=== PATIENT | male | born 1940 | race Caucasian/White ===

== ENCOUNTER 2016-09-14 13:55 | Outpatient (CLI) | payer MEDICARE, OTHER ==
[2016-09-14 14:42] LABS: CALCIUM 9.4 mg/dL (8.5-10.3); CREATININE 1.4 mg/dL (0.6-1.2); POTASSIUM 3.6 mmol/L (3.5-5.0); URIC ACID 7.8 mg/dL (2.6-7.2)
[2016-09-14 14:51] LABS: FERRITIN 195.3 ng/mL (23.9-336.2)
== END 2016-09-14 13:56 | disposition home or self-care (01) ==
LOC: LAB 13:55
PROVIDERS: ATTEND Specialist
DX: I12.9 Hypertensive chronic kidney disease with stage 1 through stage 4 chronic kidney disease, or unspecified chronic kidney disease (principal); N18.3 Chronic kidney disease, stage 3 (moderate); D63.1 Anemia in chronic kidney disease; N25.81 Secondary hyperparathyroidism of renal origin
CPT/HCPCS: 36415; 80069; 82728; 83036; 83540; 83970; 84466; 84550; 85018

== ENCOUNTER 2016-09-21 08:39 | Outpatient (CLI) | payer MEDICARE, OTHER ==
[2016-09-21 09:23] LABS: CHOL/HDL RATIO 3.4 (<5.0); CHOLESTEROL 127 mg/dL; HDL CHOLESTEROL 37 mg/dL; LDL/HDL RATIO 1.8 (<3.6); TRIGLYCERIDES 110 mg/dL; VLDL CHOLESTEROL 22 mg/dL
== END 2016-09-21 08:40 | disposition home or self-care (01) ==
LOC: LAB 08:39
PROVIDERS: ATTEND Family Medicine
DX: E78.5 Hyperlipidemia, unspecified (principal)
CPT/HCPCS: 36415; 80061

== ENCOUNTER 2017-03-10 13:21 | Outpatient (CLI) | payer MEDICARE, OTHER ==
[2017-03-10 14:30] LABS: URIC ACID 7.9 mg/dL (2.6-7.2)
== END 2017-03-10 13:22 | disposition home or self-care (01) ==
LOC: LAB 13:21
PROVIDERS: ATTEND Specialist
DX: D63.1 Anemia in chronic kidney disease (principal); I12.9 Hypertensive chronic kidney disease with stage 1 through stage 4 chronic kidney disease, or unspecified chronic kidney disease; N18.3 Chronic kidney disease, stage 3 (moderate)
CPT/HCPCS: 36415; 82570; 82728; 83540; 84156; 84466; 84550; 85018

== ENCOUNTER 2017-03-13 16:30 | Outpatient (CLI) | payer MEDICARE, OTHER ==
[2017-03-13 17:03] LABS: CALCIUM 9.1 mg/dL (8.5-10.3); CREATININE 1.6 mg/dL (0.6-1.2); PHOSPHORUS 3.4 mg/dL (2.5-4.6); POTASSIUM 3.5 mmol/L (3.5-5.0)
== END 2017-03-13 16:31 | disposition home or self-care (01) ==
LOC: LAB 16:30
PROVIDERS: ATTEND Specialist
DX: N25.81 Secondary hyperparathyroidism of renal origin (principal); D63.1 Anemia in chronic kidney disease; I12.9 Hypertensive chronic kidney disease with stage 1 through stage 4 chronic kidney disease, or unspecified chronic kidney disease; N18.3 Chronic kidney disease, stage 3 (moderate)
CPT/HCPCS: 80069

== ENCOUNTER 2017-09-05 10:49 | Outpatient (CLI) | payer MEDICARE, OTHER ==
[2017-09-05 11:19] LABS: BASOPHILS % (AUTO) 0.7 %; EOSINOPHILS # (AUTO) 0.2 10^3/uL (0.0-0.7); HGB - HEMOGLOBIN 11.6 g/dL (14.0-18.0); LYMPHOCYTES % (AUTO) 18.8 %; MEAN CORPUSCULAR HEMOGLOBIN 33.5 pg (27.0-31.0); MEAN CORPUSCULAR HGB CONC 34.7 g/dL (32.0-36.0); MEAN CORPUSCULAR VOLUME 96.5 fL (80.0-94.0); MEAN PLATELET VOLUME 7.7 fL (7.4-11.4); MONOCYTES # (AUTO) 0.8 10^3/uL (0.0-1.0); MONOCYTES % (AUTO) 13.9 %; NEUTROPHILS # (AUTO) 3.5 10^3/uL (1.5-6.6); NEUTROPHILS % (AUTO) 63.6 %; PLT - PLATELET COUNT 129 10^3/uL (130-450); RED BLOOD COUNT 3.46 10^6/uL (4.70-6.10); RED CELL DISTRIBUTION WIDTH 13.8 % (12.0-15.0); WHITE BLOOD COUNT 5.5 x10^3/uL (4.8-10.8)
[2017-09-05 11:36] LABS: ALBUMIN 3.8 g/dL (3.2-5.5); CALCIUM 8.8 mg/dL (8.5-10.3); CREATININE 1.6 mg/dL (0.6-1.2); PHOSPHORUS 3.4 mg/dL (2.5-4.6)
[2017-09-05 12:26] LABS: CREATININE,URINE 72.1 mg/dL
== END 2017-09-05 10:50 | disposition home or self-care (01) ==
LOC: LAB 10:49
PROVIDERS: ATTEND Specialist
DX: N25.81 Secondary hyperparathyroidism of renal origin (principal); I12.9 Hypertensive chronic kidney disease with stage 1 through stage 4 chronic kidney disease, or unspecified chronic kidney disease; D63.1 Anemia in chronic kidney disease; N18.3 Chronic kidney disease, stage 3 (moderate)
CPT/HCPCS: 36415; 80069; 82570; 83970; 84156; 84550; 85025

== ENCOUNTER 2018-01-05 08:28 | Outpatient (CLI) | payer MEDICARE, OTHER ==
[2018-01-05 09:18] LABS: ALBUMIN 4.1 g/dL (3.2-5.5); ALBUMIN/GLOBULIN RATIO 1.5 (1.0-2.2); ALKALINE PHOSPHATASE 92 IU/L (42-121); ALT ALANINE AMINOTRANSFERASE 26 IU/L (10-60); AST ASPARTATE AMINOTRANSFERASE 39 IU/L (10-42); BILIRUBIN,TOTAL 2.4 mg/dL (0.2-1.0); BUN - BLOOD UREA NITROGEN 22 mg/dL (6-20); CALCIUM 8.8 mg/dL (8.5-10.3); CARBON DIOXIDE - CO2 28 mmol/L (21-32); CHLORIDE 101 mmol/L (101-111); CHOL/HDL RATIO 2.5 (<5.0); CHOLESTEROL 123 mg/dL; CREATININE 1.4 mg/dL (0.6-1.2); GFR - MDRD 49 (>89); GLUCOSE 101 mg/dL (70-100); HDL CHOLESTEROL 50 mg/dL; LDL CHOLESTEROL,CALCULATED 58 mg/dL; LDL/HDL RATIO 1.2 (<3.6); SODIUM 137 mmol/L (135-145); TOTAL PROTEIN 6.9 g/dL (6.7-8.2); URIC ACID 7.3 mg/dL (2.6-7.2); VLDL CHOLESTEROL 15 mg/dL
[2018-01-05 09:47] LABS: CREATININE,URINE 107.8 mg/dL
== END 2018-01-05 08:29 | disposition home or self-care (01) ==
LOC: LAB 08:28
PROVIDERS: ATTEND Specialist
DX: I12.9 Hypertensive chronic kidney disease with stage 1 through stage 4 chronic kidney disease, or unspecified chronic kidney disease (principal); N25.81 Secondary hyperparathyroidism of renal origin; N18.3 Chronic kidney disease, stage 3 (moderate); D63.1 Anemia in chronic kidney disease
CPT/HCPCS: 36415; 80053; 80061; 82570; 83721; 83970; 84156; 84550; 85018

== ENCOUNTER 2018-06-08 16:56 | Outpatient (CLI) | payer MEDICARE, OTHER ==
[2018-06-08 17:36] LABS: CREATININE 1.6 mg/dL (0.6-1.2); PHOSPHORUS 3.7 mg/dL (2.5-4.6); URIC ACID 8.2 mg/dL (2.6-7.2)
[2018-06-08 17:56] LABS: CREATININE,URINE 79.7 mg/dL; PROTEIN/CREATININE RATIO,URINE 1.1 (<=0.2)
== END 2018-06-08 16:57 | disposition home or self-care (01) ==
LOC: LAB 16:56
PROVIDERS: ATTEND Specialist
DX: I12.9 Hypertensive chronic kidney disease with stage 1 through stage 4 chronic kidney disease, or unspecified chronic kidney disease (principal); N25.81 Secondary hyperparathyroidism of renal origin; N18.3 Chronic kidney disease, stage 3 (moderate)
CPT/HCPCS: 36415; 80069; 82570; 83970; 84156; 84550

== ENCOUNTER 2018-06-21 12:07 | Outpatient (CLI) | payer MEDICARE, OTHER ==
[2018-06-21 12:30] LABS: ALBUMIN 4.2 g/dL (3.2-5.5); CALCIUM 9.1 mg/dL (8.5-10.3); CREATININE 1.5 mg/dL (0.6-1.2); PHOSPHORUS 4.5 mg/dL (2.5-4.6)
== END 2018-06-21 12:08 | disposition home or self-care (01) ==
LOC: LAB 12:07
PROVIDERS: ATTEND Specialist
DX: N25.81 Secondary hyperparathyroidism of renal origin (principal); E87.6 Hypokalemia; N18.3 Chronic kidney disease, stage 3 (moderate)
CPT/HCPCS: 36415; 80069; 84550

== ENCOUNTER 2018-08-21 14:33 | Outpatient (CLI) | payer MEDICARE, OTHER ==
[2018-08-21 15:05] LABS: ALBUMIN 4.1 g/dL (3.2-5.5); CALCIUM 9.3 mg/dL (8.5-10.3); CREATININE 2.9 mg/dL (0.6-1.2); PHOSPHORUS 4.4 mg/dL (2.5-4.6); URIC ACID 7.7 mg/dL (2.6-7.2)
== END 2018-08-21 14:34 | disposition home or self-care (01) ==
LOC: LAB 14:33
PROVIDERS: ATTEND Specialist
DX: I12.9 Hypertensive chronic kidney disease with stage 1 through stage 4 chronic kidney disease, or unspecified chronic kidney disease (principal); N18.3 Chronic kidney disease, stage 3 (moderate)
CPT/HCPCS: 36415; 80069; 84550

== ENCOUNTER 2018-09-04 09:36 | Outpatient (CLI) | payer MEDICARE, OTHER ==
--- NOTE | 2018-09-04 13:33 | XRAY Report ---
Reason: PAIN AND EDEMA R FOOT SINCE OCTOBER 2017 Procedure Date: 09/04/2018 Accession Number: [id number] / [id number] Procedure: XR - Foot 3 View RT CPT Code: FULL RESULT: EXAM: RIGHT FOOT RADIOGRAPHY EXAM DATE: 09/04/2018 10:07 AM. CLINICAL HISTORY: PAIN AND EDEMA R FOOT SINCE OCTOBER 2017. COMPARISON: None. TECHNIQUE: 3 views. FINDINGS: Bones: Bony overgrowth first metatarsal head. Hallux valgus, metatarsus adductus. Plantar heel spur. Joints: Metatarsal phalangeal joints are in flexion.. Joint space narrowing first metatarsophalangeal joint. Spurring talonavicular joint. Spurring cuneiform metatarsal joints. Soft Tissues: Peripheral vascular calcifications. Soft tissue swelling IMPRESSION: 1. DJD. 2. Bunion formation. RADIA
== END 2018-09-04 09:37 | disposition home or self-care (01) ==
LOC: DI 09:36
PROVIDERS: ATTEND Podiatrist
DX: M19.071 Primary osteoarthritis, right ankle and foot (principal); M21.611 Bunion of right foot

== ENCOUNTER 2018-09-12 15:19 | Outpatient (CLI) | payer MEDICARE, OTHER ==
[2018-09-12 15:50] LABS: ALBUMIN 4.2 g/dL (3.2-5.5); CALCIUM 9.6 mg/dL (8.5-10.3); CREATININE 2.4 mg/dL (0.6-1.2); PHOSPHORUS 4.8 mg/dL (2.5-4.6); URIC ACID 8.3 mg/dL (2.6-7.2)
== END 2018-09-12 15:20 | disposition home or self-care (01) ==
LOC: LAB 15:19
PROVIDERS: ATTEND Specialist
DX: N17.9 Acute kidney failure, unspecified (principal); N18.3 Chronic kidney disease, stage 3 (moderate)
CPT/HCPCS: 36415; 80069; 84550

== ENCOUNTER 2018-09-13 12:47 | Outpatient (CLI) | payer MEDICARE, OTHER ==
--- NOTE | 2018-09-13 15:29 | Ultrasound Report ---
Reason: PAIN,EDEMA R FOOT Procedure Date: 09/13/2018 Accession Number: [id number] / [id number] Procedure: US - Duplex Ext Veins Right CPT Code: FULL RESULT: EXAM: RIGHT LOWER EXTREMITY VENOUS ULTRASOUND EXAM DATE: 09/13/2018 01:32 PM. CLINICAL HISTORY: Pain, edema right foot. COMPARISON: None. TECHNIQUE: Real-time sonographic vascular imaging was performed by the food editor through the lower extremity utilizing both color-flow and Doppler spectral analysis. Multiple technology sales representative static images were saved for review. FINDINGS: Common Femoral Vein (CFV): Normal. CFV-GSV Junction: Normal. Profunda Femoral Vein (PFV): Normal. Femoral Vein (FV) Prox: Normal. Femoral Vein (FV) Mid: Normal. Femoral Vein (FV) Dist: Normal. Popliteal Vein: Normal. Posterior Tibial Veins: Normal. Peroneal Veins: Normal. Other: None. IMPRESSION: No evidence for deep venous thrombosis. RADIA
== END 2018-09-13 12:48 | disposition home or self-care (01) ==
LOC: DI 12:47
PROVIDERS: ATTEND Podiatrist
DX: M79.671 Pain in right foot (principal); R60.0 Localized edema

== ENCOUNTER 2019-01-02 14:59 | Outpatient (CLI) | payer MEDICARE, OTHER ==
[2019-01-02 15:23] LABS: ALBUMIN 3.8 g/dL (3.2-5.5); CALCIUM 8.9 mg/dL (8.5-10.3); CREATININE 1.9 mg/dL (0.6-1.2); PHOSPHORUS 3.1 mg/dL (2.5-4.6); URIC ACID 9.1 mg/dL (2.6-7.2)
== END 2019-01-02 15:00 | disposition home or self-care (01) ==
LOC: LAB 14:59
PROVIDERS: ATTEND Specialist
DX: N18.3 Chronic kidney disease, stage 3 (moderate) (principal)
CPT/HCPCS: 36415; 80069; 84550

== ENCOUNTER 2019-02-28 13:00 | Outpatient (CLI) | payer MEDICARE, OTHER ==
[2019-02-28 13:28] LABS: CALCIUM 8.9 mg/dL (8.5-10.3); CREATININE 1.8 mg/dL (0.6-1.2); PHOSPHORUS 3.4 mg/dL (2.5-4.6); URIC ACID 9.1 mg/dL (2.6-7.2)
[2019-02-28 13:34] LABS: CREATININE,URINE 23.7 mg/dL; PROTEIN/CREATININE RATIO,URINE 0.4 (<=0.2)
== END 2019-02-28 13:01 | disposition home or self-care (01) ==
LOC: LAB 13:00
PROVIDERS: ATTEND Specialist
DX: I12.9 Hypertensive chronic kidney disease with stage 1 through stage 4 chronic kidney disease, or unspecified chronic kidney disease (principal); N18.3 Chronic kidney disease, stage 3 (moderate); N25.81 Secondary hyperparathyroidism of renal origin; D63.1 Anemia in chronic kidney disease
CPT/HCPCS: 36415; 80069; 82570; 83970; 84156; 84550

== ENCOUNTER 2019-05-02 13:00 | Outpatient (CLI) | payer MEDICARE, OTHER ==
[2019-05-02 13:22] LABS: CALCIUM 8.9 mg/dL (8.5-10.3); CREATININE 1.5 mg/dL (0.6-1.2); PHOSPHORUS 3.3 mg/dL (2.5-4.6); URIC ACID 7.9 mg/dL (2.6-7.2)
== END 2019-05-02 13:01 | disposition home or self-care (01) ==
LOC: LAB 13:00
PROVIDERS: ATTEND Specialist
DX: I12.9 Hypertensive chronic kidney disease with stage 1 through stage 4 chronic kidney disease, or unspecified chronic kidney disease (principal); N18.3 Chronic kidney disease, stage 3 (moderate)
CPT/HCPCS: 36415; 80069; 84550

== ENCOUNTER 2019-06-25 14:09 | Outpatient (CLI) | payer MEDICARE, OTHER ==
[2019-06-25 14:53] LABS: ALBUMIN 3.8 g/dL (3.2-5.5); CALCIUM 9.1 mg/dL (8.5-10.3); CREATININE 1.5 mg/dL (0.6-1.2); PHOSPHORUS 3.5 mg/dL (2.5-4.6); URIC ACID 8.3 mg/dL (2.6-7.2)
== END 2019-06-25 14:10 | disposition home or self-care (01) ==
LOC: LAB 14:09
PROVIDERS: ATTEND Specialist
DX: I12.9 Hypertensive chronic kidney disease with stage 1 through stage 4 chronic kidney disease, or unspecified chronic kidney disease (principal); N18.3 Chronic kidney disease, stage 3 (moderate)
CPT/HCPCS: 36415; 80069; 84550

== ENCOUNTER 2019-08-30 14:05 | Outpatient (CLI) | payer MEDICARE, OTHER ==
[2019-08-30 14:35] LABS: ALBUMIN 3.9 g/dL (3.2-5.5); CALCIUM 9.1 mg/dL (8.5-10.3); CREATININE 1.6 mg/dL (0.6-1.2); PHOSPHORUS 4.1 mg/dL (2.5-4.6); URIC ACID 8.5 mg/dL (2.6-7.2)
== END 2019-08-30 14:06 | disposition home or self-care (01) ==
LOC: LAB 14:05
PROVIDERS: ATTEND Specialist
DX: I12.9 Hypertensive chronic kidney disease with stage 1 through stage 4 chronic kidney disease, or unspecified chronic kidney disease (principal); N18.3 Chronic kidney disease, stage 3 (moderate)
CPT/HCPCS: 36415; 80069; 84550

== ENCOUNTER 2019-11-20 08:49 | Emergency (ER) | payer MEDICARE, OTHER ==
--- NOTE | 2019-11-20 09:34 | ED Physician Documentation ---
PD HPI BACK PAIN - Stated complaint Stated Complaint: GLF/BACK PX - Chief complaint Chief Complaint: Back Pain - History obtained from History obtained from: Patient - History of Present Illness Timing - onset: Yesterday Timing - duration: Days (1) Timing - details: Abrupt onset, Still present Location: Mid, Left Quality: Pain Associated symptoms: No: Fever, Weakness, Numbness Improves with: Rest Worsened by: Movement, Palpation Contributing factors: Trauma (he slipped and fell onto blocks of wood, striking left flank on edge. With bruising and pain lcoally.) Similar symptoms before: Has not had sx before Review of Systems Constitutional: denies: Fever, Chills Nose: denies: Rhinorrhea / runny nose, Congestion Throat: denies: Sore throat Cardiac: denies: Chest pain / pressure Respiratory: denies: Cough GI: reports: Nausea. denies: Abdominal Pain, Vomiting, Diarrhea : denies: Hematuria Skin: reports: Other (bruising left flank/CVA area). denies: Abrasion (s), Laceration (s) Musculoskeletal: reports: Back pain. denies: Neck pain Neurologic: denies: Focal weakness, Numbness PD PAST MEDICAL HISTORY - Past Medical History Cardiovascular: Congestive heart failure, Hypertension, High cholesterol, Atrial fibrillation, Other Respiratory: None Neuro: None Endocrine/Autoimmune: Type 2 diabetes : Renal insuffiency HEENT: None - Past Surgical History Past Surgical History: Yes Ortho: ACL reconstruction, Carpal Tunnel surgery Cardiovascular: Pacemaker HEENT: Other - Present Medications Home Medications: Ambulatory Orders Medication Instructions Recorded Confirmed Aspirin [Children's Aspirin] 81 mg PO DAILY 06/28/13 06/10/14 Atenolol 100 mg PO BID 06/28/13 06/10/14 Carvedilol 25 mg PO BID 06/28/13 06/10/14 Cod Liver Oil 1 each PO DAILY 06/28/13 06/10/14 Furosemide [Lasix] 40 mg PO BID 06/28/13 06/10/14 allopurinoL [Zyloprim] 100 mg PO DAILY 06/28/13 06/10/14 cloNIDine HCL [Clonidine HCl] 0.1 mg PO BID 06/28/13 06/10/14 Digoxin 0.125 mg PO DAILY 12/05/13 06/10/14 Atorvastatin [Lipitor] 20 mg PO DAILY 06/10/14 06/10/14 B Complex W-C No.20/Folic Acid 1 mg PO QPM 06/10/14 06/10/14 [Renal Caps Softgel] Cholecalciferol (Vitamin D3) 2,000 unit PO DAILY 06/10/14 06/10/14 [Vitamin D] Insulin Aspart [Novolog Flexpen] 14 units SQ DAILY 06/10/14 06/10/14 Insulin Aspart [Novolog Flexpen] 16 units SQ DAILY 06/10/14 06/10/14 Irbesartan [Avapro] 150 mg PO DAILY 06/10/14 06/10/14 lisinopriL [Lisinopril] 40 mg PO QPM 06/10/14 06/10/14 oxyCODONE [Roxicodone] 5 mg PO Q6H PRN #20 tablet 11/20/19 - Allergies Allergies/Adverse Reactions: Allergies Allergy/AdvReac Type Severity Reaction Status Date / Time aliskiren hemifumarate * AdvReac Unknown Cramps Verified 11/20/19 09:20 [From [facility]] amlodipine AdvReac Unknown Edema Verified 11/20/19 09:20 amlodipine besylate * AdvReac Unknown Edema Verified 11/20/19 09:20 [From [facility]] doxycycline AdvReac Unknown Unknown Verified 11/20/19 09:20 minoxidil AdvReac Unknown Edema Verified 11/20/19 09:20 nifedipine AdvReac Unknown Edema Verified 11/20/19 09:20 - Social History Does the pt smoke?: No Smoking Status: Never smoker Does the pt drink ETOH?: Yes Does the pt have substance abuse?: No - Immunizations Immunizations are current?: No Immunizations: TDAP >10years/unknown - POLST Patient has POLST: No PD ED PE NORMAL - Vitals Vital signs reviewed: Yes - General General: Alert and oriented X 3, No acute distress (not hurting when lying still; pain with sitting up and turning. ), Well developed/nourished - HEENT HEENT: Atraumatic - Neck Neck: Supple, no meningeal sign, No bony TTP - Cardiac Cardiac: RRR, No murmur - Respiratory Respiratory: Clear bilaterally - Abdomen Abdomen: Normal bowel sounds, Soft, Non distended, No organomegaly, Other (some tender left upper abd without guarding. ) - Back Back: No spinal TTP, Other (bruising and swelling, very tender left flank at lower ribs area. ) - Derm Derm: Normal color, Warm and dry - Extremities Extremities: Normal ROM s pain, No edema, No calf tenderness / cord - Neuro Neuro: Alert and oriented X 3, No motor deficit, No sensory deficit, Normal speech Results - Vitals Vitals: Vital Signs - 24 hr 11/20/19 11/20/19 11/20/19 09:17 10:23 14:35 Temperature 36.2 C L Heart Rate 86 58 L 80 Respiratory 16 20 16 Rate Blood Pressure 169/73 H 165/88 H 184/100 H O2 Saturation 97 98 100 Oxygen O2 Source Room air - Labs Labs: Laboratory Tests 11/20/19 11/20/19 11/20/19 10:08 10:08 10:08 WBC 6.0 RBC 3.06 L Hgb 10.1 L Hct 30.4 L MCV 99.3 H MCH 33.0 H MCHC 33.2 RDW 14.0 Plt Count 103 L MPV 9.9 Neut # (Auto) 4.7 Lymph # (Auto) 0.7 L [place] # (Auto) 0.6 Eos # (Auto) 0.0 Baso # (Auto) 0.0 Absolute Nucleated RBC 0.00 Nucleated RBC % 0.0 Sodium 139 Potassium 3.6 Chloride 99 L Carbon Dioxide 29 Anion Gap 11.0 BUN 37 H Creatinine 1.6 H Estimated GFR (MDRD) 42 L Glucose 271 H Calcium 9.2 Magnesium 2.2 Total Bilirubin 1.9 H AST 32 ALT 21 Alkaline Phosphatase 101 Total Protein 7.2 Albumin 3.8 Globulin 3.4 Albumin/Globulin Ratio 1.1 Lipase 30 Urine Color Urine Clarity Urine pH Ur Specific [place] Urine Protein Urine Glucose (UA) Urine Ketones Urine Occult Blood Urine Nitrite Urine Bilirubin Urine Urobilinogen Ur Leukocyte Esterase Ur Microscopic Review Urine Culture Comments Last Dose Date UNK Last Dose Time UNK Digoxin 0.5 11/20/19 11:54 WBC RBC Hgb Hct MCV MCH MCHC RDW Plt Count MPV Neut # (Auto) Lymph # (Auto) [place] # (Auto) Eos # (Auto) Baso # (Auto) Absolute Nucleated RBC Nucleated RBC % Sodium Potassium Chloride Carbon Dioxide Anion Gap BUN Creatinine Estimated GFR (MDRD) Glucose Calcium Magnesium Total Bilirubin AST ALT Alkaline Phosphatase Total Protein Albumin Globulin Albumin/Globulin Ratio Lipase Urine Color YELLOW Urine Clarity CLEAR Urine pH 7.0 Ur Specific [place] 1.010 Urine Protein TRACE Urine Glucose (UA) 100 H Urine Ketones NEGATIVE Urine Occult Blood TRACE-INTA Urine Nitrite NEGATIVE Urine Bilirubin NEGATIVE Urine Urobilinogen 1 (NORMAL) Ur Leukocyte Esterase NEGATIVE Ur Microscopic Review NOT INDICATED Urine Culture Comments NOT INDICATED Last Dose Date Last Dose Time Digoxin - Rads (name of study) abd CT Radiology: Prelim report reviewed (left 12th rib fracture. No kidney nor spleen injuries. ), See rad report PD MEDICAL DECISION MAKING - ED course Complexity details: reviewed results, re-evaluated patient (improved with pain meds, but still hurts a lot for sitting up. ), considered differential, d/w p atient, d/w family () Departure - Departure Disposition: 01 Home, Self Care Clinical Impression: Accidental fall Qualifiers: Encounter type: initial encounter Qualified Code(s): W19.XXXA - Unspecified fall, initial encounter Contusion, flank Qualifiers: Encounter type: initial encounter Qualified Code(s): S30.1XXA - Contusion of abdominal wall, initial encounter Rib fracture Qualifiers: Encounter type: initial encounter Rib fracture type: single rib Fracture type: closed Laterality: left Qualified Code(s): S22.32XA - Fracture of one rib, left side, initial encounter for closed fracture Condition: Stable Record reviewed to determine appropriate education?: Yes Instructions: ED Fx Rib Follow-Up: Usama Baker MD [Primary Care Provider] - Prescriptions: oxyCODONE [Roxicodone] 5 mg PO Q6H PRN #20 tablet PRN Reason: Pain Comments: The CT scan shows a fracture of your 12th rib (the lowest rib). These are typically treated by just comfort with activity and position. Use Tylenol 500 to 650 mg 4 times a day regularly for the next week. You could use some anti-inflammatory such as naproxen Aleve twice daily to that as well. To that add oxycodone half to 1 tablet every 6 hours if needed for pain. I would anticipate improvement over the next week with reduce swelling from the bruising. It will take about 4 weeks for the rib to heal up fully. Discharge Date/Time: 11/20/19 14:35
[2019-11-20] MEDS ORDERED: KETOROLAC 15 MG/ML VIAL IVP STA (09:52)
[2019-11-20] MEDS ORDERED: SODIUM CHLORIDE 0.9% 1,000 ML IV STA (09:52)
[2019-11-20] MEDS ORDERED: MORPHINE 2 MG/ML CARPUJECT IVP STA ×2 (09:52→13:42)
[2019-11-20 10:22] LABS: BASOPHILS % (AUTO) 0.3 %; EOSINOPHILS % (AUTO) 0.5 %; HGB - HEMOGLOBIN 10.1 g/dL (14.0-18.0); LYMPHOCYTES # (AUTO) 0.7 10^3/uL (1.5-3.5); LYMPHOCYTES % (AUTO) 10.9 %; MEAN CORPUSCULAR HGB CONC 33.2 g/dL (32.0-36.0); MEAN CORPUSCULAR VOLUME 99.3 fL (80.0-94.0); MEAN PLATELET VOLUME 9.9 fL (7.4-11.4); MONOCYTES # (AUTO) 0.6 10^3/uL (0.0-1.0); NEUTROPHILS # (AUTO) 4.7 10^3/uL (1.5-6.6); PLT - PLATELET COUNT 103 10^3/uL (130-450); RED BLOOD COUNT 3.06 10^6/uL (4.70-6.10)
[2019-11-20 10:36] LABS: ALBUMIN 3.8 g/dL (3.2-5.5); ALBUMIN/GLOBULIN RATIO 1.1 (1.0-2.2); BILIRUBIN,TOTAL 1.9 mg/dL (0.2-1.0); CALCIUM 9.2 mg/dL (8.5-10.3); CREATININE 1.6 mg/dL (0.6-1.2); TOTAL PROTEIN 7.2 g/dL (6.7-8.2)
[2019-11-20 10:38] LABS: DIGOXIN 0.5 ng/mL; MAGNESIUM 2.2 mg/dL (1.7-2.8)
[2019-11-20] MEDS ORDERED: IOVERSOL 320 100 ML VIAL IVP ONE ×2 (11:35→13:29)
[2019-11-20 12:03] LABS: BILIRUBIN,URINE NEGATIVE (NEGATIVE); GLUCOSE, URINE (UA) 100 mg/dL (NEGATIVE); KETONES,URINE (UA) NEGATIVE (NEGATIVE); LEUKOCYTE ESTERASE, URINE NEGATIVE (NEGATIVE); NITRITE,URINE NEGATIVE (NEGATIVE); OCCULT BLOOD,URINE TRACE-INTA (NEGATIVE); PROTEIN,URINE TRACE mg/dL (NEGATIVE); UROBILINOGEN,URINE 1 (NORMAL) E.U./dL (NORMAL)
[2019-11-20 12:07] LABS: CLARITY,URINE CLEAR (CLEAR)
--- NOTE | 2019-11-20 12:42 | CT Report ---
PROCEDURE: Abdomen/Pelvis W INDICATIONS: left flank injury post fall, flank/abd pain CONTRAST: IV CONTRAST: Optiray 320 ml: 80 PO CONTRAST: *NO PO CONTRAST TECHNIQUE: After the administration of oral and intravenous contrast, 5 mm thick sections acquired from the diap hragms to the symphysis. 5 mm thick coronal and sagittal reformats were acquired. For radiation dos e reduction, the following was used: automated exposure control, adjustment of mA and/or kV accordin g to patient size. COMPARISON: None. FINDINGS: Image quality: Excellent. ABDOMEN: Lung bases: Mild bilateral pleural effusions, right greater than left. Mild bibasilar atelectasis. Mi ld cardiomegaly. Pacemaker. Solid organs: Question cirrhotic appearance of the liver. Prominent left lobe with somewhat nodular s urface appearance. Splenomegaly. Gallbladder multiple tiny gallstones. Mild gallbladder wall thickeni ng. No fluid around the gallbladder. Biliary system is non dilated. Pancreas enhances normally. No adrenal nodules. Kidneys demonstrate normal size and enhancement, without hydronephrosis. Peritoneum and bowel: Bowel loops demonstrate normal wall thickness and caliber. Minimal perihepatic ascites. Sigmoid diverticulosis without evidence of diverticulitis. Nodes and vessels: No retroperitoneal or mesenteric adenopathy by size criteria. Aorta and inferior vena cava are normal in size. Atherosclerotic calcifications involving the aorta and iliac arteries and visceral vessels. Miscellaneous: No ventral hernias. PELVIS: Genitourinary: Bladder wall thickness is normal. Miscellaneous: No inguinal hernias or adenopathy. Bones: Segmental fracture of the left 12th rib, with a fracture present near the costovertebral junc tion and a second fracture relatively laterally. No suspicious bony lesions. No vertebral body compr ession fractures. IMPRESSION: 1. Segmental left 12th rib fracture. 2. Small bilateral pleural effusions, right greater than left, with mild associated bibasilar atelect asis. 3. Mild cardiomegaly. 4. Question cirrhosis. 5. Splenomegaly. 6. Tiny gallstones. 7. Mild gallbladder wall thickening is nonspecific. 8. Minimal perihepatic ascites. 9. Atherosclerosis. Reviewed by: Donnie Moreno MD on 11/20/2019 12:41 PM PDT Approved by: Donnie Moreno MD on 11/20/2019 12:41 PM PDT Station ID: [id number]
[2019-11-20] MEDS ORDERED: ACETAMINOPHEN 325 MG TABLET PO STA (13:42)
[2019-11-20 14:48] VITALS: BP 184/100
== END 2019-11-20 14:35 | disposition home or self-care (01) ==
LOC: ED 08:49
DX: S22.32XA Fracture of one rib, left side, initial encounter for closed fracture (principal); S30.1XXA Contusion of abdominal wall, initial encounter; W01.198A Fall on same level from slipping, tripping and stumbling with subsequent striking against other object, initial encounter; E11.29 Type 2 diabetes mellitus with other diabetic kidney complication; I11.0 Hypertensive heart disease with heart failure; I50.9 Heart failure, unspecified; Z79.4 Long term (current) use of insulin
CPT/HCPCS: 36415; 74177; 80053; 80162; 81003; 83690; 83735; 85025; 96361; 96374; 96375; 99284; A9270; Q9967; 81001; 87086

== ENCOUNTER 2019-12-03 11:51 | Outpatient (CLI) | payer MEDICARE, OTHER ==
[2019-12-03 12:47] LABS: CALCIUM 9.2 mg/dL (8.5-10.3); CREATININE 1.9 mg/dL (0.6-1.2); PHOSPHORUS 3.8 mg/dL (2.5-4.6); URIC ACID 8.6 mg/dL (2.6-7.2)
[2019-12-03 13:53] LABS: CREATININE,URINE 49.5 mg/dL; PROTEIN/CREATININE RATIO,URINE 0.4 (<=0.2)
== END 2019-12-03 11:52 | disposition home or self-care (01) ==
LOC: LAB 11:51
PROVIDERS: ATTEND Specialist
DX: N18.3 Chronic kidney disease, stage 3 (moderate) (principal); D63.1 Anemia in chronic kidney disease; N25.81 Secondary hyperparathyroidism of renal origin
CPT/HCPCS: 36415; 80069; 81599; 82570; 83540; 83970; 84156; 84466; 84550; 85018

== ENCOUNTER 2020-01-01 13:17 | Outpatient (CLI) | payer MEDICARE, OTHER ==
[2020-01-01 13:51] LABS: ALBUMIN 3.9 g/dL (3.2-5.5); BUN - BLOOD UREA NITROGEN 38 mg/dL (6-20); CARBON DIOXIDE - CO2 28 mmol/L (21-32); CHLORIDE 102 mmol/L (101-111); CREATININE 1.8 mg/dL (0.6-1.2); DIGOXIN 0.5 ng/mL; GLUCOSE 117 mg/dL (70-100); SODIUM 140 mmol/L (135-145); URIC ACID 8.6 mg/dL (2.6-7.2)
== END 2020-01-01 13:18 | disposition home or self-care (01) ==
LOC: LAB 13:17
PROVIDERS: ATTEND Specialist
DX: N18.3 Chronic kidney disease, stage 3 (moderate) (principal); Z79.899 Other long term (current) drug therapy
CPT/HCPCS: 36415; 80069; 80162; 84550

== ENCOUNTER 2020-04-07 13:24 | Outpatient (CLI) | payer MEDICARE, OTHER ==
[2020-04-07 14:10] LABS: ALBUMIN 4.1 g/dL (3.2-5.5); CALCIUM 9.2 mg/dL (8.5-10.3); CREATININE 1.7 mg/dL (0.6-1.2); PHOSPHORUS 3.8 mg/dL (2.5-4.6); POTASSIUM 3.7 mmol/L (3.5-5.0); URIC ACID 8.5 mg/dL (2.6-7.2)
[2020-04-07 14:13] LABS: CREATININE,URINE 47.7 mg/dL
== END 2020-04-07 13:25 | disposition home or self-care (01) ==
LOC: LAB 13:24
PROVIDERS: ATTEND Specialist
DX: N18.30 Chronic kidney disease, stage 3 unspecified (principal); N25.81 Secondary hyperparathyroidism of renal origin; R80.9 Proteinuria, unspecified
CPT/HCPCS: 36415; 80069; 82570; 83970; 84156; 84550

== ENCOUNTER 2020-05-20 14:18 | Outpatient (CLI) | payer MEDICARE, OTHER ==
[2020-05-20 15:03] LABS: CREATININE 1.7 mg/dL (0.6-1.2); PHOSPHORUS 3.9 mg/dL (2.5-4.6); URIC ACID 9.2 mg/dL (2.6-7.2)
== END 2020-05-20 14:19 | disposition home or self-care (01) ==
LOC: LAB 14:18
PROVIDERS: ATTEND Family Medicine
DX: N18.30 Chronic kidney disease, stage 3 unspecified (principal)
CPT/HCPCS: 36415; 80069; 84550

== ENCOUNTER 2020-07-02 13:18 | Outpatient (CLI) | payer MEDICARE, OTHER ==
[2020-07-02 13:40] LABS: BASOPHILS % (AUTO) 0.8 %; EOSINOPHILS # (AUTO) 0.1 10^3/uL (0.0-0.7); EOSINOPHILS % (AUTO) 3.2 %; HCT - HEMATOCRIT 32.4 % (42.0-52.0); HGB - HEMOGLOBIN 10.5 g/dL (14.0-18.0); LYMPHOCYTES # (AUTO) 0.7 10^3/uL (1.5-3.5); LYMPHOCYTES % (AUTO) 19.1 %; MEAN CORPUSCULAR HEMOGLOBIN 32.4 pg (27.0-31.0); MEAN CORPUSCULAR HGB CONC 32.4 g/dL (32.0-36.0); MEAN PLATELET VOLUME 9.8 fL (7.4-11.4); MONOCYTES # (AUTO) 0.7 10^3/uL (0.0-1.0); MONOCYTES % (AUTO) 18.4 %; NEUTROPHILS # (AUTO) 2.2 10^3/uL (1.5-6.6); NEUTROPHILS % (AUTO) 58.2 %; PLT - PLATELET COUNT 117 10^3/uL (130-450); RED BLOOD COUNT 3.24 10^6/uL (4.70-6.10); RED CELL DISTRIBUTION WIDTH 13.7 % (12.0-15.0); WHITE BLOOD COUNT 3.8 x10^3/uL (4.8-10.8)
[2020-07-02 13:50] LABS: CREATININE,URINE 54.2 mg/dL; PROTEIN/CREATININE RATIO,URINE 0.4 (<=0.2)
[2020-07-02 14:17] LABS: FERRITIN 151.6 ng/mL (23.9-336.2)
[2020-07-02 14:38] LABS: ALBUMIN 3.9 g/dL (3.2-5.5); CALCIUM 9.6 mg/dL (8.5-10.3); CREATININE 1.6 mg/dL (0.6-1.2); PHOSPHORUS 3.1 mg/dL (2.5-4.6); POTASSIUM 3.4 mmol/L (3.5-5.0); URIC ACID 9.1 mg/dL (2.6-7.2)
== END 2020-07-02 13:19 | disposition home or self-care (01) ==
LOC: LAB 13:18
PROVIDERS: ATTEND Specialist
DX: N18.30 Chronic kidney disease, stage 3 unspecified (principal); D63.1 Anemia in chronic kidney disease
CPT/HCPCS: 36415; 80069; 82570; 82728; 83540; 83970; 84156; 84466; 84550; 85025

== ENCOUNTER 2020-09-18 11:30 | Outpatient (CLI) | payer MEDICARE, OTHER ==
[2020-09-18 12:11] LABS: ALBUMIN 3.9 g/dL (3.2-5.5); CALCIUM 8.8 mg/dL (8.5-10.3); CREATININE 1.8 mg/dL (0.6-1.2); PHOSPHORUS 4.1 mg/dL (2.5-4.6); POTASSIUM 3.6 mmol/L (3.5-5.0); URIC ACID 8.6 mg/dL (2.6-7.2)
[2020-09-18 12:29] LABS: FERRITIN 113.8 ng/mL (23.9-336.2)
== END 2020-09-18 11:31 | disposition home or self-care (01) ==
LOC: LAB 11:30
PROVIDERS: ATTEND Specialist
DX: N25.81 Secondary hyperparathyroidism of renal origin (principal); D63.1 Anemia in chronic kidney disease
CPT/HCPCS: 36415; 80069; 82728; 83540; 83970; 84466; 84550; 85018

== ENCOUNTER 2020-10-14 14:21 | Outpatient (CLI) | payer MEDICARE, OTHER ==
[2020-10-14 14:33] LABS: HCT - HEMATOCRIT 33.6 % (42.0-52.0); HGB - HEMOGLOBIN 11.3 g/dL (14.0-18.0); MEAN CORPUSCULAR HEMOGLOBIN 32.4 pg (27.0-31.0); MEAN CORPUSCULAR HGB CONC 33.6 g/dL (32.0-36.0); MEAN CORPUSCULAR VOLUME 96.3 fL (80.0-94.0); MEAN PLATELET VOLUME 8.9 fL (7.4-11.4); RED BLOOD COUNT 3.49 10^6/uL (4.70-6.10); RED CELL DISTRIBUTION WIDTH 13.2 % (12.0-15.0); WHITE BLOOD COUNT 6.1 x10^3/uL (4.8-10.8)
[2020-10-14 15:04] LABS: CREATININE 2.8 mg/dL (0.6-1.2); PHOSPHORUS 4.7 mg/dL (2.5-4.6); URIC ACID 11.8 mg/dL (2.6-7.2)
[2020-10-14 15:05] LABS: ALBUMIN 4.1 g/dL (3.2-5.5); CALCIUM 9.7 mg/dL (8.5-10.3); POTASSIUM 3.8 mmol/L (3.5-5.0)
== END 2020-10-14 14:22 | disposition home or self-care (01) ==
LOC: LAB 14:21
PROVIDERS: ATTEND Specialist
DX: N18.32 Chronic kidney disease, stage 3b (principal); D63.1 Anemia in chronic kidney disease
CPT/HCPCS: 36415; 80069; 84550; 85027

== ENCOUNTER 2020-10-19 12:56 | Outpatient (CLI) | payer MEDICARE, OTHER ==
[2020-10-19 13:40] LABS: ALBUMIN 4.1 g/dL (3.2-5.5); CALCIUM 9.3 mg/dL (8.5-10.3); CREATININE 2.1 mg/dL (0.6-1.2); PHOSPHORUS 3.3 mg/dL (2.5-4.6); POTASSIUM 4.1 mmol/L (3.5-5.0); URIC ACID 9.4 mg/dL (2.6-7.2)
== END 2020-10-19 12:57 | disposition home or self-care (01) ==
LOC: LAB 12:56
PROVIDERS: ATTEND Specialist
DX: N19 Unspecified kidney failure (principal)
CPT/HCPCS: 36415; 80069; 84550

== ENCOUNTER 2020-11-03 10:16 | Outpatient (CLI) | payer MEDICARE, OTHER ==
[2020-11-03 10:57] LABS: ALBUMIN 3.8 g/dL (3.2-5.5); CALCIUM 9.1 mg/dL (8.5-10.3); CREATININE 1.8 mg/dL (0.6-1.2); PHOSPHORUS 3.4 mg/dL (2.5-4.6); POTASSIUM 3.9 mmol/L (3.5-5.0); URIC ACID 8.2 mg/dL (2.6-7.2)
== END 2020-11-03 10:17 | disposition home or self-care (01) ==
LOC: LAB 10:16
PROVIDERS: ATTEND Specialist
DX: N19 Unspecified kidney failure (principal)
CPT/HCPCS: 36415; 80069; 84550

== ENCOUNTER 2020-11-19 13:36 | Outpatient (CLI) | payer MEDICARE, OTHER ==
[2020-11-19 14:28] LABS: CALCIUM 9.1 mg/dL (8.5-10.3); CREATININE 2.2 mg/dL (0.6-1.2); POTASSIUM 3.3 mmol/L (3.5-5.0); URIC ACID 9.9 mg/dL (2.6-7.2)
[2020-11-19 15:03] LABS: CREATININE,URINE 52.8 mg/dL; TOTAL PROTEIN,URINE TIMED < 6 mg/dL
== END 2020-11-19 13:37 | disposition home or self-care (01) ==
LOC: LAB 13:36
PROVIDERS: ATTEND Specialist
DX: N17.9 Acute kidney failure, unspecified (principal); N18.32 Chronic kidney disease, stage 3b; N25.81 Secondary hyperparathyroidism of renal origin; R80.9 Proteinuria, unspecified
CPT/HCPCS: 36415; 80069; 82570; 83970; 84156; 84550

== ENCOUNTER 2020-12-03 12:41 | Outpatient (CLI) | payer MEDICARE, OTHER ==
[2020-12-03 13:39] LABS: ALBUMIN 4.1 g/dL (3.2-5.5); CALCIUM 9.3 mg/dL (8.5-10.3); CREATININE 2.2 mg/dL (0.6-1.2); PHOSPHORUS 3.3 mg/dL (2.5-4.6); POTASSIUM 3.8 mmol/L (3.5-5.0)
[2020-12-03 20:07] LABS: ESTIMATED AVERAGE GLUCOSE 137 mg/dL (70-100); HEMOGLOBIN A1c% 6.4 % (4.27-6.07)
== END 2020-12-03 12:42 | disposition home or self-care (01) ==
LOC: LAB 12:41
PROVIDERS: ATTEND Specialist
DX: N18.32 Chronic kidney disease, stage 3b (principal); N17.9 Acute kidney failure, unspecified; D63.1 Anemia in chronic kidney disease
CPT/HCPCS: 36415; 80069; 83036; 84550

== ENCOUNTER 2020-12-18 17:16 | Outpatient (CLI) | payer MEDICARE, OTHER ==
[2020-12-18 17:54] LABS: ALBUMIN 4.1 g/dL (3.2-5.5); CREATININE 2.4 mg/dL (0.6-1.2); PHOSPHORUS 4.1 mg/dL (2.5-4.6); POTASSIUM 3.6 mmol/L (3.5-5.0); URIC ACID 9.8 mg/dL (2.6-7.2)
== END 2020-12-18 17:17 | disposition home or self-care (01) ==
LOC: LAB 17:16
PROVIDERS: ATTEND Specialist
DX: N17.9 Acute kidney failure, unspecified (principal); N18.32 Chronic kidney disease, stage 3b; D63.1 Anemia in chronic kidney disease
CPT/HCPCS: 36415; 80069; 82728; 83540; 84466; 84550; 85018

== ENCOUNTER 2021-01-19 12:20 | Outpatient (CLI) | payer MEDICARE, OTHER ==
[2021-01-19 13:32] LABS: CALCIUM 9.4 mg/dL (8.5-10.3); CREATININE 2.4 mg/dL (0.6-1.2); PHOSPHORUS 3.9 mg/dL (2.5-4.6); POTASSIUM 3.3 mmol/L (3.5-5.0); URIC ACID 11.4 mg/dL (2.6-7.2)
== END 2021-01-19 12:21 | disposition home or self-care (01) ==
LOC: LAB 12:20
PROVIDERS: ATTEND Specialist
DX: N17.9 Acute kidney failure, unspecified (principal); N18.32 Chronic kidney disease, stage 3b; D63.1 Anemia in chronic kidney disease
CPT/HCPCS: 36415; 80069; 83036; 84550

== ENCOUNTER 2021-01-28 11:37 | Emergency (ER) | payer MEDICARE, OTHER ==
[2021-01-28 11:52] VITALS: BP 182/72
--- NOTE | 2021-01-28 11:57 | ED Physician Documentation ---
PD HPI SKIN - Stated complaint Stated Complaint: CHEEK BLEEDING - Chief complaint Chief Complaint: Heent - History obtained from History obtained from: Patient - History of Present Illness Timing - onset: How many hours ago (2), Today Timing - duration: Hours (2) Timing - details: Abrupt onset, Still present (he was washing face and had small point area start bleeding and has continued to slow drip despite long time with pressure on it. No noted skin lesions at the area.) Location: Face (right cheek.) Quality / character: No: Painful, Discolored, Raised Contributing factors: Other (no anticoagulants.). No: Recent illness Similar symptoms before: Has not had sx before Review of Systems Constitutional: denies: Fever, Chills Nose: denies: Rhinorrhea / runny nose, Congestion Throat: denies: Sore throat Respiratory: denies: Cough Endocrine: denies: Weight loss, Easy bruising / bleeding PD PAST MEDICAL HISTORY - Past Medical History Cardiovascular: Congestive heart failure, Hypertension, High cholesterol, Atrial fibrillation, Other Respiratory: None Neuro: None Endocrine/Autoimmune: Type 2 diabetes : Renal insuffiency HEENT: None - Past Surgical History Past Surgical History: Yes Ortho: ACL reconstruction, Carpal Tunnel surgery Cardiovascular: Pacemaker HEENT: Other - Present Medications Home Medications: Ambulatory Orders Medication Instructions Recorded Confirmed Aspirin [Children's Aspirin] 81 mg PO DAILY 06/28/13 06/10/14 Atenolol 100 mg PO BID 06/28/13 06/10/14 Carvedilol 25 mg PO BID 06/28/13 06/10/14 Cod Liver Oil 1 each PO DAILY 06/28/13 06/10/14 Furosemide [Lasix] 40 mg PO BID 06/28/13 06/10/14 allopurinoL [Zyloprim] 100 mg PO DAILY 06/28/13 06/10/14 cloNIDine HCL [Clonidine HCl] 0.1 mg PO BID 06/28/13 06/10/14 Digoxin 0.125 mg PO DAILY 12/05/13 06/10/14 Atorvastatin [Lipitor] 20 mg PO DAILY 06/10/14 06/10/14 B Complex W-C No.20/Folic Acid 1 mg PO QPM 06/10/14 06/10/14 [Renal Caps Softgel] Cholecalciferol (Vitamin D3) 2,000 unit PO DAILY 06/10/14 06/10/14 [Vitamin D] Insulin Aspart [Novolog Flexpen] 14 units SQ DAILY 06/10/14 06/10/14 Insulin Aspart [Novolog Flexpen] 16 units SQ DAILY 06/10/14 06/10/14 Irbesartan [Avapro] 150 mg PO DAILY 06/10/14 06/10/14 lisinopriL [Lisinopril] 40 mg PO QPM 06/10/14 06/10/14 oxyCODONE [Roxicodone] 5 mg PO Q6H PRN #20 tablet 11/20/19 - Allergies Allergies/Adverse Reactions: Allergies Allergy/AdvReac Type Severity Reaction Status Date / Time aliskiren hemifumarate * AdvReac Unknown Cramps Verified 01/28/21 11:52 [[facility] amlodipine AdvReac Unknown Edema Verified 01/28/21 11:52 amlodipine besylate * AdvReac Unknown Edema Verified 01/28/21 11:52 [From [facility]] doxycycline AdvReac Unknown Unknown Verified 01/28/21 11:52 minoxidil AdvReac Unknown Edema Verified 01/28/21 11:52 nifedipine AdvReac Unknown Edema Verified 01/28/21 11:52 - Social History Does the pt smoke?: No Smoking Status: Never smoker Does the pt drink ETOH?: Yes Does the pt have substance abuse?: No - Immunizations Immunizations are current?: No Immunizations: TDAP >10years/unknown - POLST Patient has POLST: No PD ED PE NORMAL - Vitals Vital signs reviewed: Yes - General General: Alert and oriented X 3, No acute distress, Well developed/nourished - Derm Derm: Normal color, Warm and dry, Other (both sides of face with several small telangectasias. No erosive lesions. Some raw skin around bleeding spot from bandaid adhesive at home. Small pinpoint area of bleeding at surface vein.) Results - Vitals Vitals: Vital Signs - 24 hr 01/28/21 11:47 Temperature 37.5 C Heart Rate 68 Respiratory 17 Rate Blood Pressure 182/72 H O2 Saturation 98 Oxygen O2 Source Room air Procedures - General procedure General procedure: I tried silver nitrate to spot but bled through that. Injected with 1% lido with epi and then I used battery cautery to the area with stopping of the bleeding. Bandaid spot applied. Departure - Departure Disposition: 01 Home, Self Care Clinical Impression: Telangiectasia of face, Hemorrhage of skin lesion Condition: Stable Record reviewed to determine appropriate education?: Yes Comments: The bleeding was from a small dilated blood vessel of the skin. I sealed the with electric heat cautery and that should allow it to heal up okay. Keep the Band-Aid on today. The rest of the skin raw areas from the bandage can be treated with just some skin ointment once or twice daily until healed. Discharge Date/Time: 01/28/21 13:48
[2021-01-28] MEDS ORDERED: SILVER NITRATE APPLICATOR TOP STA (12:05)
== END 2021-01-28 13:48 | disposition home or self-care (01) ==
LOC: ED 11:37
DX: I78.1 Nevus, non-neoplastic (principal); L98.8 Other specified disorders of the skin and subcutaneous tissue
CPT/HCPCS: 99282

== ENCOUNTER 2021-02-15 14:12 | Outpatient (CLI) | payer MEDICARE, OTHER ==
[2021-02-15 15:23] LABS: ALBUMIN 3.9 g/dL (3.2-5.5); CALCIUM 8.9 mg/dL (8.5-10.3); CREATININE 2.5 mg/dL (0.6-1.2); PHOSPHORUS 4.5 mg/dL (2.5-4.6); POTASSIUM 3.5 mmol/L (3.5-5.0); URIC ACID 6.9 mg/dL (2.6-7.2)
== END 2021-02-15 14:13 | disposition home or self-care (01) ==
LOC: LAB 14:12
PROVIDERS: ATTEND Specialist
DX: N17.9 Acute kidney failure, unspecified (principal); N18.32 Chronic kidney disease, stage 3b
CPT/HCPCS: 36415; 80069; 84550

== ENCOUNTER 2021-02-24 02:13 | Outpatient (CLI) | payer MEDICARE, OTHER | END 2021-02-24 02:14 | disposition critical access hospital (66) | LOC: EMS 02:13 | DX: R47.81 Slurred speech (principal); E16.2 Hypoglycemia, unspecified | CPT/HCPCS: A0425; A0427 ==

== ENCOUNTER 2021-02-24 02:27 | Observation (INO) | payer MEDICARE, OTHER ==
--- NOTE | 2021-02-24 02:52 | ED Physician Documentation ---
History of Present Illness - Stated complaint Stated Complaint: GLF - Chief complaint Chief Complaint: Trauma Hd/Nk PD PAST MEDICAL HISTORY - Past Medical History Cardiovascular: Congestive heart failure, Hypertension, High cholesterol, Atrial fibrillation, Other Respiratory: None Neuro: None Endocrine/Autoimmune: Type 2 diabetes : Renal insuffiency HEENT: None - Past Surgical History Past Surgical History: Yes Ortho: ACL reconstruction, Carpal Tunnel surgery Cardiovascular: Pacemaker HEENT: Other - Present Medications Home Medications: Ambulatory Orders Medication Instructions Recorded Confirmed Aspirin [Children's Aspirin] 81 mg PO DAILY 06/28/13 06/10/14 Atenolol 100 mg PO BID 06/28/13 06/10/14 Carvedilol 25 mg PO BID 06/28/13 06/10/14 Cod Liver Oil 1 each PO DAILY 06/28/13 06/10/14 Furosemide [Lasix] 40 mg PO BID 06/28/13 06/10/14 allopurinoL [Zyloprim] 100 mg PO DAILY 06/28/13 06/10/14 cloNIDine HCL [Clonidine HCl] 0.1 mg PO BID 06/28/13 06/10/14 Digoxin 0.125 mg PO DAILY 12/05/13 06/10/14 Atorvastatin [Lipitor] 20 mg PO DAILY 06/10/14 06/10/14 B Complex W-C No.20/Folic Acid 1 mg PO QPM 06/10/14 06/10/14 [Renal Caps Softgel] Cholecalciferol (Vitamin D3) 2,000 unit PO DAILY 06/10/14 06/10/14 [Vitamin D] Insulin Aspart [Novolog Flexpen] 14 units SQ DAILY 06/10/14 06/10/14 Insulin Aspart [Novolog Flexpen] 16 units SQ DAILY 06/10/14 06/10/14 Irbesartan [Avapro] 150 mg PO DAILY 06/10/14 06/10/14 lisinopriL [Lisinopril] 40 mg PO QPM 06/10/14 06/10/14 oxyCODONE [Roxicodone] 5 mg PO Q6H PRN #20 tablet 11/20/19 - Allergies Allergies/Adverse Reactions: Allergies Allergy/AdvReac Type Severity Reaction Status Date / Time aliskiren hemifumarate * AdvReac Unknown Cramps Verified 02/24/21 02:50 [From [facility]] amlodipine AdvReac Unknown Edema Verified 02/24/21 02:50 amlodipine besylate * AdvReac Unknown Edema Verified 02/24/21 02:50 [facility] doxycycline AdvReac Unknown Unknown Verified 02/24/21 02:50 minoxidil AdvReac Unknown Edema Verified 02/24/21 02:50 nifedipine AdvReac Unknown Edema Verified 02/24/21 02:50 - Social History Does the pt smoke?: No Smoking Status: Never smoker Does the pt drink ETOH?: Yes Does the pt have substance abuse?: No - Immunizations Immunizations are current?: No Immunizations: TDAP >10years/unknown - POLST Patient has POLST: No Results - Vitals Vitals: Vital Signs - 24 hr 02/24/21 02:45 Temperature 36.2 C L Heart Rate 80 Respiratory 16 Rate Blood Pressure 155/85 H O2 Saturation 100 Oxygen O2 Source Room air
[2021-02-24] MEDS ORDERED: BACITRACIN ZINC OINT 1 PACKET TOP STA (02:58)
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
[2021-02-24 03:11] LABS: BASOPHILS % (AUTO) 0.4 %; EOSINOPHILS # (AUTO) 0.1 10^3/uL (0.0-0.7); EOSINOPHILS % (AUTO) 2.9 %; HGB - HEMOGLOBIN 9.2 g/dL (14.0-18.0); LYMPHOCYTES # (AUTO) 0.4 10^3/uL (1.5-3.5); LYMPHOCYTES % (AUTO) 8.6 %; MEAN CORPUSCULAR HEMOGLOBIN 33.8 pg (27.0-31.0); MEAN CORPUSCULAR HGB CONC 32.9 g/dL (32.0-36.0); MEAN CORPUSCULAR VOLUME 102.9 fL (80.0-94.0); MEAN PLATELET VOLUME 9.3 fL (7.4-11.4); MONOCYTES # (AUTO) 0.5 10^3/uL (0.0-1.0); MONOCYTES % (AUTO) 11.1 %; NEUTROPHILS # (AUTO) 3.6 10^3/uL (1.5-6.6); NEUTROPHILS % (AUTO) 76.6 %; PLT - PLATELET COUNT 78 10^3/uL (130-450); RED BLOOD COUNT 2.72 10^6/uL (4.70-6.10); RED CELL DISTRIBUTION WIDTH 13.5 % (12.0-15.0); WHITE BLOOD COUNT 4.8 x10^3/uL (4.8-10.8)
[2021-02-24 03:24] LABS: ALBUMIN 3.8 g/dL (3.2-5.5); ALKALINE PHOSPHATASE 92 IU/L (42-121); ALT ALANINE AMINOTRANSFERASE 21 IU/L (10-60); AST ASPARTATE AMINOTRANSFERASE 41 IU/L (10-42); BILIRUBIN,TOTAL 2.1 mg/dL (0.2-1.0); CALCIUM 9.3 mg/dL (8.5-10.3); CARBON DIOXIDE - CO2 27 mmol/L (21-32); CHLORIDE 97 mmol/L (101-111); CREATININE 2.9 mg/dL (0.6-1.2); ETOH - ETHANOL < 5.0 mg/dL; GFR - MDRD 21 (>89); GLUCOSE 94 mg/dL (70-100); LIPASE 48 U/L (22-51); POTASSIUM 4.1 mmol/L (3.5-5.0); SODIUM 137 mmol/L (135-145); TOTAL PROTEIN 7.7 g/dL (6.7-8.2)
[2021-02-24 03:25] LABS: BUN - BLOOD UREA NITROGEN 91 mg/dL (6-20)
[2021-02-24] MEDS ORDERED: ACETAMINOPHEN 325 MG TABLET PO PRN (04:40)
[2021-02-24] MEDS ORDERED: SODIUM CHLORIDE FLUSH 0.9% 10 ML SYRINGE IVP PRN (04:40)
[2021-02-24] MEDS ORDERED: ONDANSETRON 4 MG/2 ML VIAL IVP PRN (04:40)
[2021-02-24 05:04] LABS: B. PARAPERTUSSIS- RESP PCR PAN NOT DETECTED; B. PERTUSSIS- RESP PCR PANEL NOT DETECTED; C. PNEUMONIAE- RESP PCR PANEL NOT DETECTED; CORONAVIRUS 229E-RESP PCR NOT DETECTED; CORONAVIRUS HKU1-RESP PCR NOT DETECTED; CORONAVIRUS NL63-RESP PCR NOT DETECTED; CORONAVIRUS OC43-RESP PCR NOT DETECTED; HUMAN METAPNEUMOVIRUS NOT DETECTED; INFLUENZA A- RESP PCR PANEL NOT DETECTED; INFLUENZA B - RESP PCR PANEL NOT DETECTED; M. PNEUMONIAE- RESP PCR PANEL NOT DETECTED; PARAINFLUENZA VIRUS 1 NOT DETECTED; PARAINFLUENZA VIRUS 2 NOT DETECTED; PARAINFLUENZA VIRUS 3 NOT DETECTED; PARAINFLUENZA VIRUS 4 NOT DETECTED; RHINOVIRUS/ENTEROVIRUS NOT DETECTED; RSV- RESP PCR PANEL NOT DETECTED; SARS-CoV-2 -RESP PCR PANEL NOT DETECTED
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
[2021-02-24 05:32] LABS: DIGOXIN 1.4 ng/mL
[2021-02-24 05:40] LABS: % IRON SATURATION 78 % (20-50); IRON 209 ug/dL (45-182); TOTAL IRON BINDING CAPACITY 267 ug/dL (250-450); TRANSFERRIN 191 mg/dL (180-329)
--- NOTE | 2021-02-24 07:28 | CT Report ---
PROCEDURE: HEAD WO INDICATIONS: fall, +HT no blood thinners TECHNIQUE: Noncontrast 4.5 mm thick angled axial sections acquired from the foramen magnum to the vertex. For r adiation dose reduction, the following was used: automated exposure control, adjustment of mA and/or kV according to patient size. COMPARISON: None. FINDINGS: Image quality: Excellent. CSF spaces: Basal cisterns are patent. No extra-axial fluid collections. Ventricles are normal in size and shape. Brain: No midline shift. No intracranial masses or hemorrhage. Leahy-white matter interface is norm al. Diffuse cerebral volume loss. Skull and face: Calvarium and visualized facial bones are intact, without suspicious lesions. Sinuses: Visualized sinuses and mastoids are clear. IMPRESSION: Diffuse generalized cerebral volume loss. No evidence of acute stroke, hemorrhage, or ma ss. No evidence of significant intracranial sequelae of acute trauma. Findings are concordant with preliminary interpretation provided by [facility]. Reviewed by: Donnie Moreno MD on 02/24/2021 7:27 AM PST Approved by: Donnie Moreno MD on 02/24/2021 7:27 AM PST Station ID: [id number]
--- NOTE | 2021-02-24 07:30 | CT Report ---
PROCEDURE: CERVICAL SPINE WO INDICATIONS: fall TECHNIQUE: Noncontrast 3 mm thick sections acquired from the skull base to the T4 level. Sagittal and coronal r eformats were then constructed. For radiation dose reduction, the following was used: automated exp osure control, adjustment of mA and/or kV according to patient size. COMPARISON: None. FINDINGS: Image quality: Excellent. Bones: No fractures or dislocations. Visualized superior ribs are intact. Moderate cervical spondyl itic change. Degenerative anterolisthesis of C3 on C4. Uncovertebral joint osteophytes at C5-C6 and C 6-C7 result in the degree of bony foraminal narrowing. Soft tissues: Prevertebral soft tissues are normal in thickness. No paravertebral hematomas. No ap ical pneumothoraces. IMPRESSION: 1. No evidence acute cervical fracture or dislocation. 2. Cervical spondylosis. Findings are concordant with preliminary interpretation provided by [facility]. Reviewed by: Donnie Moreno MD on 02/24/2021 7:29 AM PST Approved by: Donnie Moreno MD on 02/24/2021 7:29 AM PST Station ID: [id number]
--- NOTE | 2021-02-24 07:32 | XRAY Report ---
PROCEDURE: Chest 1 View X-Ray INDICATIONS: Chest Pain TECHNIQUE: One view of the chest was acquired. COMPARISON: None FINDINGS: Surgical changes and devices: Pacemaker. Lungs and pleura: No pleural effusions or pneumothorax. Minimal left basilar density, likely represe nting scarring versus atelectasis. Mediastinum: Mediastinal contours appear normal. Cardiomegaly. Bones and chest wall: No suspicious bony lesions. Overlying soft tissues appear unremarkable. IMPRESSION: 1. Cardiomegaly. 2. Focal atelectasis versus scarring, left lung base. Findings are concordant with preliminary interpretation provided by [facility]. Reviewed by: Donnie Moreno MD on 02/24/2021 7:31 AM [facility] Approved by: Donnie Moreno MD on 02/24/2021 7:31 AM [facility] Station ID: [id number]
--- NOTE | 2021-02-24 07:36 | XRAY Report ---
PROCEDURE: Pelvis 1 View INDICATIONS: fall, trauma TECHNIQUE: 1 view(s) of the pelvis acquired. COMPARISON: None. FINDINGS: Bones: No fractures or dislocations. No suspicious bony lesions. Soft tissues: Visualized bowel gas pattern is normal. No suspicious soft tissue calcifications. Va scular calcifications. IMPRESSION: No evidence acute bony abnormality of the pelvis. If clinical suspicion and/or symptoms persist, further assessment with repeat plain films or advanced imaging (e.g., CT, MRI, or bone scan) may be helpful for further assessment. Findings are concordant with preliminary interpretation provided by [facility]. Reviewed by: Donnie Moreno MD on 02/24/2021 7:34 AM PST Approved by: Donnie Moreno MD on 02/24/2021 7:34 AM PST Station ID: [id number]
[2021-02-24 07:38] LABS: FOLATE > 49.60 ng/mL (5.90 - >24.8)
[2021-02-24] MEDS ORDERED: INSULIN ASPART 300 UNIT/3 ML PEN SUBQ SCH ×2 (08:00→17:00)
[2021-02-24] MEDS ORDERED: carvediloL 12.5 MG TABLET PO SCH ×2 (09:00→13:40)
[2021-02-24] MEDS ORDERED: allopurinoL 100 MG TABLET PO SCH ×2 (09:00→13:38)
[2021-02-24] MEDS ORDERED: DIGOXIN 125 MCG TABLET PO SCH ×2 (09:00→13:42)
[2021-02-24] MEDS ORDERED: lisinopriL 5 MG TABLET PO SCH ×2 (09:00→13:43)
[2021-02-24] MEDS ORDERED: LINEZOLID 600 MG TABLET PO SCH (09:00)
[2021-02-24] MEDS ORDERED: ASPIRIN CHEW 81 MG TABLET PO SCH ×2 (09:00)
[2021-02-24] MEDS ORDERED: SODIUM CHLORIDE FLUSH 0.9% 10 ML SYRINGE IVP SCH (09:00)
[2021-02-24] MEDS ORDERED: cloNIDine 0.1 MG TABLET PO SCH ×2 (09:00→13:41)
--- NOTE | 2021-02-24 11:34 | PHARMACY PROGRESS NOTE ---
- Best Possible Medication History Admit Date and Time: 02/24/21 0440 Processed by: Pharmacy Medication History completed: Yes Patient Interview: Completed Secondary Source(s): Pharmacy records, Insurance records As the person ultimately responsible for medication therapy, providers are able to order a medication from an existing home medication list in [facility] via the "Reconcile Routine" prior to Confirmation of that medication by sales support engineer. Such practice is discouraged except when the physician, in their clinical judgment, deems that a medical need exists for a medication without regard to previous use.
[2021-02-24 12:39] LABS: ESTIMATED AVERAGE GLUCOSE 123 mg/dL (70-100); HEMOGLOBIN A1c% 5.9 % (4.27-6.07)
[2021-02-24 13:34] LABS: CALCIUM 9.3 mg/dL (8.5-10.3); CREATININE 2.8 mg/dL (0.6-1.2); POTASSIUM 4.2 mmol/L (3.5-5.0)
--- NOTE | 2021-02-24 15:12 | Discharge Plan ---
Discharge Plan Problem Reviewed?: Yes Disposition: Home, Self Care Condition: Stable Diet: Diabetic Activity Restrictions: Activity as Tolerated Shower Restrictions: No (fall precaution) Instruction Topics: Hypoglycemia, Diabetes Type 2 Coping, Syncope, Syncope Causes, Syncope Tx Prevent Health Concerns: hypoglycemia and syncope, CKD Plan of Treatment: You have very significant lower glucose level when you had syncope. As you mentioned, it is likely due to the significantly lower glucose level to cause your syncope episode. Discussed with you in detail about how to prevention of lower glucose. You may resume your home medications. You report you are very closely monitored by your epic beacon specialists, please followup with next month appointment to see your epic beacon specialists. Meanwhile, followup with your PCP in one week to have BMP check to monitor your kidney function. Care Goals: Stabilization and resolved of your hypoglycemia Assessment: discussed the care Plan, and how to prevention of hypoglycemia with you, Answered your questions, he understood Additional Instructions or Follow Up instructions: You may follow-up with your PCP in 1 week, follow-up with your epic beacon specialists in the next month Appointment or early as need as out-pt. Should your symptoms return or worse, you may present to ER or call 911 for help. No Smoking: If you smoke, Please STOP! Call for help.
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
[2021-02-24 15:40] VITALS: BP 178/82
[2021-02-25] MEDS ORDERED: ATORVASTATIN 10 MG TABLET PO SCH (09:00)
== END 2021-02-24 15:50 | disposition home or self-care (01) ==
LOC: EDUNIT# → ED 02:27 → MS2 04:40
PROVIDERS: ADMIT Internal Medicine; ATTEND Nurse Practitioner Gerontology
DX: R55 Syncope and collapse (principal); N17.9 Acute kidney failure, unspecified; E11.649 Type 2 diabetes mellitus with hypoglycemia without coma; E11.22 Type 2 diabetes mellitus with diabetic chronic kidney disease; I13.0 Hypertensive heart and chronic kidney disease with heart failure and stage 1 through stage 4 chronic kidney disease, or unspecified chronic kidney disease; I50.9 Heart failure, unspecified; N18.9 Chronic kidney disease, unspecified; I48.91 Unspecified atrial fibrillation; D64.9 Anemia, unspecified; D69.6 Thrombocytopenia, unspecified; E78.00 Pure hypercholesterolemia, unspecified; S50.312A Abrasion of left elbow, initial encounter; S00.01XA Abrasion of scalp, initial encounter; W19.XXXA Unspecified fall, initial encounter; Y92.002 Bathroom of unspecified non-institutional (private) residence as the place of occurrence of the external cause; R04.0 Epistaxis; R77.8 Other specified abnormalities of plasma proteins; Z20.822 Contact with and (suspected) exposure to COVID-19; Z95.0 Presence of cardiac pacemaker; Z79.82 Long term (current) use of aspirin; Z79.4 Long term (current) use of insulin; Z79.899 Other long term (current) drug therapy; Z87.891 Personal history of nicotine dependence
CPT/HCPCS: 36415; 70450; 71045; 72125; 72170; 80048; 80053; 80162; 82607; 82746; 83036; 83540; 83690; 84466; 84484; 85025; 87631; 93005; 93306; 99284; 99285; A9270; G0378; G0480; 0202U; 80320

== ENCOUNTER 2021-03-08 11:50 | Outpatient (CLI) | payer MEDICARE, OTHER ==
[2021-03-08 12:05] LABS: BASOPHILS % (AUTO) 0.7 %; EOSINOPHILS # (AUTO) 0.3 10^3/uL (0.0-0.7); EOSINOPHILS % (AUTO) 5.9 %; HCT - HEMATOCRIT 23.3 % (42.0-52.0); HGB - HEMOGLOBIN 7.8 g/dL (14.0-18.0); LYMPHOCYTES # (AUTO) 0.9 10^3/uL (1.5-3.5); LYMPHOCYTES % (AUTO) 16.1 %; MEAN CORPUSCULAR HEMOGLOBIN 33.8 pg (27.0-31.0); MEAN CORPUSCULAR HGB CONC 33.5 g/dL (32.0-36.0); MEAN CORPUSCULAR VOLUME 100.9 fL (80.0-94.0); MEAN PLATELET VOLUME 10.4 fL (7.4-11.4); MONOCYTES % (AUTO) 18.7 %; NEUTROPHILS # (AUTO) 3.1 10^3/uL (1.5-6.6); NEUTROPHILS % (AUTO) 57.5 %; PLT - PLATELET COUNT 74 10^3/uL (130-450); RED BLOOD COUNT 2.31 10^6/uL (4.70-6.10); RED CELL DISTRIBUTION WIDTH 13.2 % (12.0-15.0); WHITE BLOOD COUNT 5.4 x10^3/uL (4.8-10.8)
[2021-03-08 12:34] LABS: CREATININE,URINE 70.5 mg/dL
[2021-03-08 12:35] LABS: TOTAL PROTEIN,URINE TIMED < 6 mg/dL
[2021-03-08 12:37] LABS: ALBUMIN 3.7 g/dL (3.2-5.5); CALCIUM 9.1 mg/dL (8.5-10.3); CREATININE 2.6 mg/dL (0.6-1.2); PHOSPHORUS 3.2 mg/dL (2.5-4.6); POTASSIUM 4.6 mmol/L (3.5-5.0); URIC ACID 7.3 mg/dL (2.6-7.2)
[2021-03-08 12:41] LABS: FERRITIN 352.1 ng/mL (23.9-336.2)
== END 2021-03-08 11:51 | disposition home or self-care (01) ==
LOC: LAB 11:50
PROVIDERS: ATTEND Specialist
DX: N18.32 Chronic kidney disease, stage 3b (principal); D63.1 Anemia in chronic kidney disease
CPT/HCPCS: 36415; 80069; 82570; 82728; 83540; 83970; 84156; 84466; 84550; 85025

== ENCOUNTER 2021-03-11 14:08 | Emergency (ER) | payer MEDICARE, OTHER ==
[2021-03-11 14:41] LABS: BASOPHILS % (AUTO) 0.7 %; EOSINOPHILS # (AUTO) 0.1 10^3/uL (0.0-0.7); EOSINOPHILS % (AUTO) 2.5 %; HCT - HEMATOCRIT 23.5 % (42.0-52.0); HGB - HEMOGLOBIN 7.9 g/dL (14.0-18.0); LYMPHOCYTES # (AUTO) 0.7 10^3/uL (1.5-3.5); LYMPHOCYTES % (AUTO) 12.7 %; MEAN CORPUSCULAR HEMOGLOBIN 33.9 pg (27.0-31.0); MEAN CORPUSCULAR HGB CONC 33.6 g/dL (32.0-36.0); MEAN CORPUSCULAR VOLUME 100.9 fL (80.0-94.0); MEAN PLATELET VOLUME 9.2 fL (7.4-11.4); MONOCYTES # (AUTO) 0.8 10^3/uL (0.0-1.0); MONOCYTES % (AUTO) 13.6 %; NEUTROPHILS % (AUTO) 69.6 %; PLT - PLATELET COUNT 154 10^3/uL (130-450); RED BLOOD COUNT 2.33 10^6/uL (4.70-6.10); RED CELL DISTRIBUTION WIDTH 13.5 % (12.0-15.0); WHITE BLOOD COUNT 5.7 x10^3/uL (4.8-10.8)
[2021-03-11 14:56] LABS: INR 1.4 (0.8-1.2); PT - PROTHROMBIN TIME 15.2 secs (9.9-12.6)
[2021-03-11 14:59] LABS: ALBUMIN/GLOBULIN RATIO 1.1 (1.0-2.2); BILIRUBIN,TOTAL 1.1 mg/dL (0.2-1.0); CALCIUM 8.9 mg/dL (8.5-10.3); CREATININE 2.7 mg/dL (0.6-1.2); POTASSIUM 4.4 mmol/L (3.5-5.0); TOTAL PROTEIN 7.5 g/dL (6.7-8.2)
[2021-03-11 15:03] LABS: PARTIAL THROMBOPLASTIN TIME 32.2 secs (24.9-33.3)
--- NOTE | 2021-03-11 15:42 | ED Physician Documentation ---
History of Present Illness - Stated complaint Stated Complaint: SEVERE ANEMIA-SENT BY PCP - Chief complaint Chief Complaint: General - History obtained from History obtained from: Patient - Additonal information Additional information: Patient comes emergency department chief complaint of "they told me to come in". Patient denies complaints, but states he was told by his doctor that his blood levels were low and that he should come to the ER right away. Patient has a history of anemia and has actually required iron infusions before. He currently takes a dose of iron every morning orally. The patient had laboratory studies checked by his tire repairman, and they showed a hemoglobin of 7.8. The results were sent to his primary doctor, whom he has not seen in a couple of years, and the PCPs office told him to come here. Patient denies any vomiting of blood or black stools. He states he had a bowel movement this morning it was "medium brown". No easy bruising or bleeding. He is not on any anticoagulants, he reports. He is not really sure why he has had the anemia in the past. No lightheadedness, shortness of breath, fatigue, or chest pain. No other complaints at this time. Review of Systems Ten Systems: 10 systems reviewed and negative Constitutional: reports: Reviewed and negative Eyes: reports: Reviewed and negative Ears: reports: Reviewed and negative Nose: reports: Reviewed and negative Throat: reports: Reviewed and negative Cardiac: reports: Reviewed and negative Respiratory: reports: Reviewed and negative GI: reports: Reviewed and negative : reports: Reviewed and negative Skin: reports: Reviewed and negative Musculoskeletal: reports: Reviewed and negative Neurologic: reports: Reviewed and negative Psychiatric: reports: Reviewed and negative Endocrine: reports: Reviewed and negative Immunocompromised: reports: Reviewed and negative PD PAST MEDICAL HISTORY - Past Medical History Cardiovascular: Congestive heart failure, Hypertension, High cholesterol, Atrial fibrillation, Other Respiratory: None Neuro: None Endocrine/Autoimmune: Type 2 diabetes GI: None : Renal insuffiency HEENT: None Psych: None Musculoskeletal: Gout - Past Surgical History Past Surgical History: Yes Ortho: ACL reconstruction, Carpal Tunnel surgery Cardiovascular: Pacemaker HEENT: Other - Present Medications Home Medications: Ambulatory Orders Medication Instructions Recorded Confirmed Carvedilol 50 mg PO BIDWM 06/28/13 02/24/21 Cod Liver Oil 1 cap PO DAILY 06/28/13 02/24/21 Furosemide [Lasix] 40 mg PO BIDDIURETIC 06/28/13 02/24/21 allopurinoL [Zyloprim] 100 mg PO 1400 06/28/13 02/24/21 cloNIDine HCL [Clonidine HCl] 0.2 mg PO QDDINNER 06/28/13 02/24/21 Digoxin 0.125 mg PO QPM 12/05/13 02/24/21 Atorvastatin [Lipitor] 20 mg PO DAILY 06/10/14 02/24/21 Benazepril HCl 10 mg PO QPM 02/24/21 02/24/21 Cholecalciferol [Vitamin D3] 25 mcg PO DAILY 02/24/21 02/24/21 Insulin Lispro Protamin/Lispro 12 - 22 units SUBQ BIDAC 02/24/21 02/24/21 [Humalog Mix 75-25 Kwikpen] Linezolid [Zyvox] 600 mg PO BID 02/24/21 02/24/21 Potassium Chloride [K-Dur] 20 meq PO QDAC 02/24/21 02/24/21 Vitamin B Complex Vit C No.3 [B 1 cap PO QDDINNER 02/24/21 02/24/21 Complex with Vitamin C] metOLazone [Metolazone] 5 mg PO .Monday02/24/21 02/24/21 - Allergies Allergies/Adverse Reactions: Allergies Allergy/AdvReac Type Severity Reaction Status Date / Time aliskiren hemifumarate * AdvReac Unknown Cramps Verified 03/11/21 14:46 [From Tekturna] amlodipine AdvReac Unknown Edema Verified 03/11/21 14:46 amlodipine besylate * AdvReac Unknown Edema Verified 03/11/21 14:46 [From Norvasc] doxycycline AdvReac Unknown Unknown Verified 03/11/21 14:46 minoxidil AdvReac Unknown Edema Verified 03/11/21 14:46 nifedipine AdvReac Unknown Edema Verified 03/11/21 14:46 - Social History Does the pt smoke?: No Smoking Status: Former smoker Does the pt drink ETOH?: Yes Does the pt have substance abuse?: No - Immunizations Immunizations are current?: No Immunizations: TDAP >10years/unknown - POLST Patient has POLST: No PD ED PE NORMAL - Vitals Vital signs reviewed: Yes - General General: Alert and oriented X 3, No acute distress, Well developed/nourished - HEENT HEENT: Atraumatic, PERRL, EOMI, Moist mucous membranes - Neck Neck: Supple, no meningeal sign - Cardiac Cardiac: RRR, No murmur, Strong equal pulses - Respiratory Respiratory: Clear bilaterally - Abdomen Abdomen: Soft, Non tender, Non distended - Rectal Rectal: Other (No external abnormalities. No gross blood. No masses. Mild amount of brown stool on glove after digital rectal exam.) - Derm Derm: Normal color, Warm and dry, No rash, Other (No petechiae or ecchymosis.) - Extremities Extremities: No deformity, No edema, No calf tenderness / cord - Neuro Neuro: Alert and oriented X 3, coconut boiler 2-12 intact, Normal speech, Other (Grossly intact) - Psych Psych: Normal mood, Normal affect Results - Vitals Vitals: Vital Signs - 24 hr 03/11/21 03/11/21 14:44 15:52 Temperature 36.5 C 36.5 C Heart Rate 78 60 Respiratory 20 16 Rate Blood Pressure 139/68 H 142/64 H O2 Saturation 99 98 Oxygen O2 Source Room air - Labs Labs: Laboratory Tests 03/11/21 03/11/21 03/11/21 14:35 14:35 14:35 WBC 5.7 RBC 2.33 L Hgb 7.9 L Hct 23.5 L MCV 100.9 H MCH 33.9 H MCHC 33.6 RDW 13.5 Plt Count 154 MPV 9.2 Neut # (Auto) 4.0 Lymph # (Auto) 0.7 L [place] # (Auto) 0.8 Eos # (Auto) 0.1 Baso # (Auto) 0.0 Absolute Nucleated RBC 0.00 Nucleated RBC % 0.0 PT 15.2 H INR 1.4 H APTT 32.2 Sodium 139 Potassium 4.4 Chloride 102 Carbon Dioxide 26 Anion Gap 11.0 BUN 84 H* Creatinine 2.7 H Estimated GFR (MDRD) 23 L Glucose 85 Calcium 8.9 Total Bilirubin 1.1 H AST 40 ALT 30 Alkaline Phosphatase 112 Total Protein 7.5 Albumin 4.0 Globulin 3.5 Albumin/Globulin Ratio 1.1 Lipase 57 H PD MEDICAL DECISION MAKING - ED course Complexity details: reviewed results, re-evaluated patient, considered differential, d/w patient ED course: Repeat CBC was done and showed actually a mild increase of 0.1 the patient's hemoglobin since his labs which were done yesterday. His renal functions were at baseline by review of prior records. I discussed with the patient that he should continue his iron M follow-up with his primary doctor to discuss whether he needs another iron infusion, or if he should get another colonoscopy, as he had not had a colonoscopy in a number of years. A guaiac test is pending at this time and can be reviewed by his primary care physician. The patient is hemodynamically stable and asymptomatic and he is stable for discharge home. Departure - Departure Disposition: 01 Home, Self Care Clinical Impression: Anemia Qualifiers: Anemia type: unspecified type Qualified Code(s): D64.9 - Anemia, unspecified Condition: Stable Instructions: ED Anemia Type Not Specified Comments: Your red blood cell levels are low today, though not in the transfusion range. You should continue taking your iron, and speak with Dr. Baker's office first thing tomorrow morning to set up a follow-up appointment to determine whether you need to be on iron infusion again or have another colonoscopy. Right now, your stool test is pending, but there is no obvious blood in your stool. Given that you are not having any symptoms, there is no indication for admission to the hospital at this time. If you begin bleeding heavily or become very lightheaded or weak, please return to the emergency department. Discharge Date/Time: 03/11/21 15:53
[2021-03-11 15:53] VITALS: BP 142/64
== END 2021-03-11 15:53 | disposition home or self-care (01) ==
LOC: ED 14:08
DX: D64.9 Anemia, unspecified (principal); I10 Essential (primary) hypertension; E11.9 Type 2 diabetes mellitus without complications; Z79.4 Long term (current) use of insulin; Z87.891 Personal history of nicotine dependence
CPT/HCPCS: 36415; 80053; 83690; 85025; 85610; 85730; 99282; 99283

== ENCOUNTER 2021-04-19 11:26 | Outpatient (CLI) | payer MEDICARE, OTHER ==
[2021-04-19 11:50] LABS: BASOPHILS % (AUTO) 0.6 %; EOSINOPHILS # (AUTO) 0.1 10^3/uL (0.0-0.7); EOSINOPHILS % (AUTO) 2.9 %; HCT - HEMATOCRIT 25.1 % (42.0-52.0); HGB - HEMOGLOBIN 8.1 g/dL (14.0-18.0); MEAN CORPUSCULAR HEMOGLOBIN 32.5 pg (27.0-31.0); MEAN CORPUSCULAR HGB CONC 32.3 g/dL (32.0-36.0); MEAN CORPUSCULAR VOLUME 100.8 fL (80.0-94.0); MEAN PLATELET VOLUME 9.4 fL (7.4-11.4); MONOCYTES # (AUTO) 0.6 10^3/uL (0.0-1.0); MONOCYTES % (AUTO) 12.8 %; NEUTROPHILS # (AUTO) 3.1 10^3/uL (1.5-6.6); NEUTROPHILS % (AUTO) 62.5 %; PLT - PLATELET COUNT 98 10^3/uL (130-450); RED BLOOD COUNT 2.49 10^6/uL (4.70-6.10); RED CELL DISTRIBUTION WIDTH 13.8 % (12.0-15.0); WHITE BLOOD COUNT 4.9 x10^3/uL (4.8-10.8)
[2021-04-19 12:10] LABS: CREATININE,URINE 45.5 mg/dL
[2021-04-19 12:15] LABS: TOTAL PROTEIN,URINE TIMED < 6 mg/dL
[2021-04-19 12:47] LABS: ALBUMIN 3.8 g/dL (3.2-5.5); CALCIUM 9.9 mg/dL (8.5-10.3); CREATININE 2.6 mg/dL (0.6-1.2); PHOSPHORUS 3.7 mg/dL (2.5-4.6); POTASSIUM 4.8 mmol/L (3.5-5.0); URIC ACID 5.2 mg/dL (2.6-7.2)
== END 2021-04-19 11:27 | disposition home or self-care (01) ==
LOC: LAB 11:26
PROVIDERS: ATTEND Specialist
DX: N18.4 Chronic kidney disease, stage 4 (severe) (principal); D63.1 Anemia in chronic kidney disease
CPT/HCPCS: 36415; 80069; 82570; 82728; 83540; 83970; 84156; 84466; 84550; 85025

== ENCOUNTER 2021-05-02 18:54 | Emergency (ER) | payer MEDICARE, OTHER ==
[2021-05-02] MEDS ORDERED: DEXTROSE 50% ABBOJECT 25 GM/50 ML SYRINGE ONE (19:12)
[2021-05-02 19:17] LABS: BASOPHILS # (AUTO) 0.1 10^3/uL (0.0-0.1); BASOPHILS % (AUTO) 0.6 %; EOSINOPHILS # (AUTO) 0.2 10^3/uL (0.0-0.7); HCT - HEMATOCRIT 23.7 % (42.0-52.0); HGB - HEMOGLOBIN 7.7 g/dL (14.0-18.0); LYMPHOCYTES # (AUTO) 1.4 10^3/uL (1.5-3.5); LYMPHOCYTES % (AUTO) 17.6 %; MEAN CORPUSCULAR HEMOGLOBIN 32.9 pg (27.0-31.0); MEAN CORPUSCULAR HGB CONC 32.5 g/dL (32.0-36.0); MEAN CORPUSCULAR VOLUME 101.3 fL (80.0-94.0); MEAN PLATELET VOLUME 9.2 fL (7.4-11.4); MONOCYTES # (AUTO) 0.9 10^3/uL (0.0-1.0); MONOCYTES % (AUTO) 11.7 %; NEUTROPHILS # (AUTO) 5.3 10^3/uL (1.5-6.6); NEUTROPHILS % (AUTO) 67.5 %; PLT - PLATELET COUNT 119 10^3/uL (130-450); RED BLOOD COUNT 2.34 10^6/uL (4.70-6.10); RED CELL DISTRIBUTION WIDTH 14.4 % (12.0-15.0); WHITE BLOOD COUNT 7.9 x10^3/uL (4.8-10.8)
--- NOTE | 2021-05-02 19:30 | ED Physician Documentation ---
History of Present Illness - Stated complaint Stated Complaint: WEAKNESS - Chief complaint Chief Complaint: Neuro - History obtained from History obtained from: Patient - History of Present Illness Timing: Today Pain level max: 0 Pain level now: 0 - Additonal information Additional information: Patient is an 80-year-old male with a history of diabetes who presents to the emergency department with altered mental status today. The family states that he did not eat or drink much today. The patient states that he took his insulin prior to dinner. He states that his blood sugar was 70 at that time. Took his 70/30 insulin about 30 minutes prior to dinner. While at the dinner table, he began to slur his speech and become drowsy. Family put him in the car and drove him here. Blood sugar on arrival was 22. Review of Systems Constitutional: denies: Fever Respiratory: denies: Cough GI: denies: Vomiting, Diarrhea PD PAST MEDICAL HISTORY - Past Medical History Cardiovascular: Congestive heart failure, Hypertension, High cholesterol, Atrial fibrillation, Other Respiratory: None Neuro: None Endocrine/Autoimmune: Type 2 diabetes GI: None : Renal insuffiency HEENT: None Psych: None Musculoskeletal: Gout - Past Surgical History Past Surgical History: Yes Ortho: ACL reconstruction, Carpal Tunnel surgery Cardiovascular: Pacemaker HEENT: Other - Present Medications Home Medications: Ambulatory Orders Medication Instructions Recorded Confirmed Carvedilol 50 mg PO BIDWM 06/28/13 04/15/21 Cod Liver Oil 1 cap PO DAILY 06/28/13 04/15/21 Furosemide [Lasix] 40 mg PO BIDDIURETIC 06/28/13 04/15/21 allopurinoL [Zyloprim] 100 mg PO 1400 06/28/13 04/15/21 cloNIDine HCL [Clonidine HCl] 0.2 mg PO QDDINNER 06/28/13 04/15/21 Digoxin 0.125 mg PO QPM 12/05/13 04/15/21 Atorvastatin [Lipitor] 20 mg PO DAILY 06/10/14 04/15/21 Benazepril HCl 10 mg PO QPM 02/24/21 04/15/21 Cholecalciferol [Vitamin D3] 25 mcg PO DAILY 02/24/21 04/15/21 Insulin Lispro Protamin/Lispro 12 - 22 units SUBQ BIDAC 02/24/21 04/15/21 [Humalog Mix 75-25 Kwikpen] Linezolid [Zyvox] 600 mg PO BID 02/24/21 04/15/21 Potassium Chloride [K-Dur] 20 meq PO QDAC 02/24/21 04/15/21 Vitamin B Complex Vit C No.3 [B 1 cap PO QDDINNER 02/24/21 04/15/21 Complex with Vitamin C] metOLazone [Metolazone] 5 mg PO .Monday02/24/21 04/15/21 - Allergies Allergies/Adverse Reactions: Allergies Allergy/AdvReac Type Severity Reaction Status Date / Time aliskiren hemifumarate * AdvReac Unknown Cramps Verified 05/02/21 19:07 [From Tekturna] amlodipine AdvReac Unknown Edema Verified 05/02/21 19:07 amlodipine besylate * AdvReac Unknown Edema Verified 05/02/21 19:07 [From Norvasc] doxycycline AdvReac Unknown Unknown Verified 05/02/21 19:07 minoxidil AdvReac Unknown Edema Verified 05/02/21 19:07 nifedipine AdvReac Unknown Edema Verified 05/02/21 19:07 - Social History Does the pt smoke?: No Smoking Status: Former smoker Does the pt drink ETOH?: Yes Does the pt have substance abuse?: No - Immunizations Immunizations are current?: No Immunizations: TDAP >10years/unknown - POLST Patient has POLST: No PD ED PE NORMAL - Vitals Vital signs reviewed: Yes - General General: Alert and oriented X 3, No acute distress, Well developed/nourished - HEENT HEENT: PERRL, Moist mucous membranes - Neck Neck: Supple, no meningeal sign - Cardiac Cardiac: RRR, Strong equal pulses - Respiratory Respiratory: No respiratory distress, Clear bilaterally - Abdomen Abdomen: Soft, Non tender, Non distended - Derm Derm: Warm and dry - Extremities Extremities: Normal ROM s pain - Neuro Neuro: Alert and oriented X 3, clip bolter and wrapper 2-12 intact, No motor deficit, No sensory deficit, Normal speech - Psych Psych: Normal mood, Normal affect Results - Vitals Vitals: Vital Signs - 24 hr 05/02/21 05/02/21 05/02/21 18:56 19:13 20:06 Temperature 37.2 C Heart Rate 68 69 66 Respiratory 21 16 18 Rate Blood Pressure 132/72 H 159/75 H O2 Saturation 99 98 100 05/02/21 05/02/21 20:45 21:11 Temperature Heart Rate 100 90 Respiratory 20 20 Rate Blood Pressure 130/81 H 153/87 H O2 Saturation 100 100 Oxygen O2 Source Room air - EKG (time done) 1924 Rate: Rate (enter#) (63) Rhythm: Paced - Labs Labs: Laboratory Tests 05/02/21 05/02/21 05/02/21 19:00 19:00 19:00 WBC 7.9 RBC 2.34 L Hgb 7.7 L Hct 23.7 L MCV 101.3 H MCH 32.9 H MCHC 32.5 RDW 14.4 Plt Count 119 L MPV 9.2 Neut # (Auto) 5.3 Lymph # (Auto) 1.4 L [place] # (Auto) 0.9 Eos # (Auto) 0.2 Baso # (Auto) 0.1 Absolute Nucleated RBC 0.00 Nucleated RBC % 0.0 Sodium 136 Potassium 3.7 Chloride 105 Carbon Dioxide 18 L Anion Gap 13.0 BUN 83 H* Creatinine 2.2 H Estimated GFR (MDRD) 29 L Glucose 24 L* Calcium 8.9 Total Bilirubin 0.8 AST 41 ALT 22 Alkaline Phosphatase 90 Troponin I High Sens 32.6 H* Total Protein 7.2 Albumin 3.7 Globulin 3.5 Albumin/Globulin Ratio 1.1 Lipase 61 H Urine Color Urine Clarity Urine pH Ur Specific [place] Urine Protein Urine Glucose (UA) Urine Ketones Urine Occult Blood Urine Nitrite Urine Bilirubin Urine Urobilinogen Ur Leukocyte Esterase Ur Microscopic Review Urine Culture Comments 05/02/21 20:45 WBC RBC Hgb Hct MCV MCH MCHC RDW Plt Count MPV Neut # (Auto) Lymph # (Auto) [place] # (Auto) Eos # (Auto) Baso # (Auto) Absolute Nucleated RBC Nucleated RBC % Sodium Potassium Chloride Carbon Dioxide Anion Gap BUN Creatinine Estimated GFR (MDRD) Glucose Calcium Total Bilirubin AST ALT Alkaline Phosphatase Troponin I High Sens Total Protein Albumin Globulin Albumin/Globulin Ratio Lipase Urine Color YELLOW Urine Clarity CLEAR Urine pH 5.5 Ur Specific [place] 1.010 Urine Protein NEGATIVE Urine Glucose (UA) NEGATIVE Urine Ketones NEGATIVE Urine Occult Blood NEGATIVE Urine Nitrite NEGATIVE Urine Bilirubin NEGATIVE Urine Urobilinogen 0.2 (NORMAL) Ur Leukocyte Esterase NEGATIVE Ur Microscopic Review NOT INDICATED Urine Culture Comments NOT INDICATED PD MEDICAL DECISION MAKING - ED course Complexity details: reviewed results, re-evaluated patient (Patient is awake, alert, talking. Requesting to go home at this time.), considered differential, d/w patient ED course: Blood sugar improved with eating and drinking. Tolerating p.o. without any difficulty. Patient request to go home at this time. Blood sugar is over 80. He just finished eating a meal here. His family will take him home and check his blood sugars tonight. If it drops below 50, they will return. Patient is well-appearing, nontoxic. Afebrile. No significant acute lab abnormalities. His anemia, chronic kidney disease, uremia are chronic. Patient counseled regarding signs and symptoms for which I believe and urgent re-evaluation would be necessary. Patient with good understanding of and agreement to plan and is comfortable going home at this time This document was made in part using voice recognition software. While efforts are made to proofread this document, sound alike and grammatical errors may occur. Departure - Departure Disposition: 01 Home, Self Care Clinical Impression: Hypoglycemia, Uremia Type 2 diabetes mellitus Qualifiers: Diabetes mellitus mcc insulin use: with terminal makeup operator use Diabetes mellitus complication status: with hypoglycemia Diabetes mellitus complication detail: without coma Qualified Code(s): E11.649 - Type 2 diabetes mellitus with hypoglycemia without coma; Z79.4 - assisted (current) use of insulin Anemia Qualifiers: Anemia type: unspecified type Qualified Code(s): D64.9 - Anemia, unspecified Chronic renal failure Qualifiers: Chronic kidney disease stage: unspecified stage Qualified Code(s): N18.9 - Chronic kidney disease, unspecified Condition: Good Instructions: ED Diabetes Hypoglycemia Insulin React Follow-Up: Your,doctor in 1 week [Other] Comments: Please do not take any more insulin until after your meals. You need to have your blood sugar rechecked at about 10 PM tonight. You will need to finish eating when you get home. Your blood sugar should be rechecked every 2-3 hours throughout the night. If it is below 50, you should call 911 to be brought back to the emergency department.
[2021-05-02 19:33] LABS: ALBUMIN 3.7 g/dL (3.2-5.5); ALBUMIN/GLOBULIN RATIO 1.1 (1.0-2.2); BILIRUBIN,TOTAL 0.8 mg/dL (0.2-1.0); CALCIUM 8.9 mg/dL (8.5-10.3); CREATININE 2.2 mg/dL (0.6-1.2); POTASSIUM 3.7 mmol/L (3.5-5.0); TOTAL PROTEIN 7.2 g/dL (6.7-8.2)
--- NOTE | 2021-05-02 19:40 | XRAY Report ---
PROCEDURE: Chest 1 View X-Ray INDICATIONS: Chest Pain TECHNIQUE: One view of the chest was acquired. COMPARISON: CXR 02/24/2021. FINDINGS: Surgical changes and devices: Left pacemaker with right atrial and right ventricular leads. Lungs and pleura: No pleural effusions or pneumothorax. Lungs appear clear. Mediastinum: Mediastinal contours appear unchanged. Heart size is prominent. 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 Overlying soft t issues appear unremarkable. IMPRESSION: No acute cardiopulmonary abnormality. Cardiomegaly. Reviewed by: Diogenes Hopper MD on 05/02/2021 7:39 PM PST Approved by: Diogenes Hopper MD on 05/02/2021 7:39 PM PST Station ID: [id number]
[2021-05-02 20:49] LABS: BILIRUBIN,URINE NEGATIVE (NEGATIVE); GLUCOSE, URINE (UA) NEGATIVE (NEGATIVE); KETONES,URINE (UA) NEGATIVE (NEGATIVE); LEUKOCYTE ESTERASE, URINE NEGATIVE (NEGATIVE); NITRITE,URINE NEGATIVE (NEGATIVE); OCCULT BLOOD,URINE NEGATIVE (NEGATIVE); PH,URINE 5.5 PH (5.0-7.5); PROTEIN,URINE NEGATIVE (NEGATIVE); UROBILINOGEN,URINE 0.2 (NORMAL) E.U./dL (NORMAL)
[2021-05-02 20:51] LABS: CLARITY,URINE CLEAR (CLEAR)
[2021-05-02 21:36] VITALS: BP 156/87
== END 2021-05-02 21:35 | disposition home or self-care (01) ==
LOC: ED 18:54
DX: E11.649 Type 2 diabetes mellitus with hypoglycemia without coma (principal); E11.22 Type 2 diabetes mellitus with diabetic chronic kidney disease; I12.9 Hypertensive chronic kidney disease with stage 1 through stage 4 chronic kidney disease, or unspecified chronic kidney disease; N18.9 Chronic kidney disease, unspecified; Z79.4 Long term (current) use of insulin; I48.91 Unspecified atrial fibrillation; Z87.891 Personal history of nicotine dependence; D64.9 Anemia, unspecified
CPT/HCPCS: 36415; 80053; 81001; 81003; 83690; 84484; 85025; 87086; 93005; 99283; 99284

== ENCOUNTER 2021-05-06 15:17 | Outpatient (CLI) | payer MEDICARE, OTHER ==
[2021-05-06 15:52] LABS: ALBUMIN 3.7 g/dL (3.2-5.5); CALCIUM 9.1 mg/dL (8.5-10.3); CREATININE 2.4 mg/dL (0.6-1.2); PHOSPHORUS 3.7 mg/dL (2.5-4.6); POTASSIUM 4.4 mmol/L (3.5-5.0); URIC ACID 5.1 mg/dL (2.6-7.2)
== END 2021-05-06 15:18 | disposition home or self-care (01) ==
LOC: LAB 15:17
PROVIDERS: ATTEND Specialist
DX: N18.4 Chronic kidney disease, stage 4 (severe) (principal); D64.9 Anemia, unspecified
CPT/HCPCS: 36415; 80069; 83036; 84550

== ENCOUNTER 2021-05-18 10:25 | Outpatient (CLI) | payer MEDICARE, OTHER ==
[2021-05-18 10:42] LABS: BASOPHILS % (AUTO) 0.8 %; EOSINOPHILS # (AUTO) 0.1 10^3/uL (0.0-0.7); HCT - HEMATOCRIT 24.5 % (42.0-52.0); HGB - HEMOGLOBIN 7.9 g/dL (14.0-18.0); LYMPHOCYTES # (AUTO) 0.7 10^3/uL (1.5-3.5); LYMPHOCYTES % (AUTO) 17.6 %; MEAN CORPUSCULAR HEMOGLOBIN 33.6 pg (27.0-31.0); MEAN CORPUSCULAR HGB CONC 32.2 g/dL (32.0-36.0); MEAN CORPUSCULAR VOLUME 104.3 fL (80.0-94.0); MEAN PLATELET VOLUME 9.4 fL (7.4-11.4); MONOCYTES # (AUTO) 0.5 10^3/uL (0.0-1.0); MONOCYTES % (AUTO) 12.3 %; NEUTROPHILS # (AUTO) 2.6 10^3/uL (1.5-6.6); PLT - PLATELET COUNT 94 10^3/uL (130-450); RED BLOOD COUNT 2.35 10^6/uL (4.70-6.10); RED CELL DISTRIBUTION WIDTH 14.6 % (12.0-15.0)
[2021-05-18 11:06] LABS: ALBUMIN 3.5 g/dL (3.2-5.5); CALCIUM 8.9 mg/dL (8.5-10.3); CREATININE 1.8 mg/dL (0.6-1.2); PHOSPHORUS 3.8 mg/dL (2.5-4.6); POTASSIUM 4.4 mmol/L (3.5-5.0); URIC ACID 4.7 mg/dL (2.6-7.2)
== END 2021-05-18 10:26 | disposition home or self-care (01) ==
LOC: LAB 10:25
PROVIDERS: ATTEND Specialist
DX: N18.4 Chronic kidney disease, stage 4 (severe) (principal); D64.9 Anemia, unspecified
CPT/HCPCS: 36415; 80069; 84550; 85025

== ENCOUNTER 2021-06-04 14:24 | Outpatient (CLI) | payer MEDICARE, OTHER ==
[2021-06-04 14:58] LABS: BASOPHILS # (AUTO) 0.1 10^3/uL (0.0-0.1); BASOPHILS % (AUTO) 1.4 %; EOSINOPHILS # (AUTO) 0.1 10^3/uL (0.0-0.7); EOSINOPHILS % (AUTO) 2.8 %; HCT - HEMATOCRIT 24.3 % (42.0-52.0); LYMPHOCYTES # (AUTO) 0.6 10^3/uL (1.5-3.5); LYMPHOCYTES % (AUTO) 15.1 %; MEAN CORPUSCULAR HGB CONC 32.9 g/dL (32.0-36.0); MEAN CORPUSCULAR VOLUME 103.4 fL (80.0-94.0); MEAN PLATELET VOLUME 9.8 fL (7.4-11.4); MONOCYTES # (AUTO) 0.6 10^3/uL (0.0-1.0); MONOCYTES % (AUTO) 15.1 %; NEUTROPHILS # (AUTO) 2.8 10^3/uL (1.5-6.6); NEUTROPHILS % (AUTO) 65.4 %; PLT - PLATELET COUNT 101 10^3/uL (130-450); RED BLOOD COUNT 2.35 10^6/uL (4.70-6.10); RED CELL DISTRIBUTION WIDTH 14.8 % (12.0-15.0); WHITE BLOOD COUNT 4.2 x10^3/uL (4.8-10.8)
[2021-06-04 15:47] LABS: ALBUMIN 3.7 g/dL (3.2-5.5); CALCIUM 8.6 mg/dL (8.5-10.3); CREATININE 3.4 mg/dL (0.6-1.2); PHOSPHORUS 5.2 mg/dL (2.5-4.6); POTASSIUM 4.4 mmol/L (3.5-5.0); URIC ACID 5.7 mg/dL (2.6-7.2)
[2021-06-04 15:55] LABS: CREATININE,URINE 49.7 mg/dL
[2021-06-04 15:57] LABS: TOTAL PROTEIN,URINE TIMED < 6 mg/dL
== END 2021-06-04 14:25 | disposition home or self-care (01) ==
LOC: LAB 14:24
PROVIDERS: ATTEND Specialist
DX: N18.4 Chronic kidney disease, stage 4 (severe) (principal); D63.1 Anemia in chronic kidney disease
CPT/HCPCS: 36415; 80069; 82570; 82728; 83540; 84156; 84466; 84550; 85025

== ENCOUNTER 2021-07-05 13:18 | Outpatient (CLI) | payer MEDICARE, OTHER ==
[2021-07-05 14:06] LABS: ALBUMIN 3.3 g/dL (3.2-5.5); CALCIUM 9.5 mg/dL (8.5-10.3); CREATININE 1.8 mg/dL (0.6-1.2); PHOSPHORUS 3.6 mg/dL (2.5-4.6); POTASSIUM 4.1 mmol/L (3.5-5.0); URIC ACID 5.3 mg/dL (2.6-7.2)
== END 2021-07-05 13:19 | disposition home or self-care (01) ==
LOC: LAB 13:18
PROVIDERS: ATTEND Specialist
DX: N18.4 Chronic kidney disease, stage 4 (severe) (principal); D64.9 Anemia, unspecified
CPT/HCPCS: 36415; 80069; 83036; 84550; 85018

== ENCOUNTER 2021-07-12 13:46 | Outpatient (CLI) | payer MEDICARE, OTHER ==
[2021-07-12 14:11] LABS: ALBUMIN 3.4 g/dL (3.2-5.5); CALCIUM 9.1 mg/dL (8.5-10.3); CREATININE 1.8 mg/dL (0.6-1.2); PHOSPHORUS 3.4 mg/dL (2.5-4.6); URIC ACID 5.2 mg/dL (2.6-7.2)
== END 2021-07-12 13:47 | disposition home or self-care (01) ==
LOC: LAB 13:46
PROVIDERS: ATTEND Specialist
DX: N18.4 Chronic kidney disease, stage 4 (severe) (principal); D64.9 Anemia, unspecified
CPT/HCPCS: 36415; 80069; 84550; 85018

== ENCOUNTER 2021-08-06 14:58 | Outpatient (CLI) | payer MEDICARE, OTHER ==
[2021-08-06 15:32] LABS: ALBUMIN 3.6 g/dL (3.2-5.5); BUN - BLOOD UREA NITROGEN 58 mg/dL (6-20); CARBON DIOXIDE - CO2 26 mmol/L (21-32); CHLORIDE 101 mmol/L (101-111); CREATININE 1.7 mg/dL (0.6-1.2); DIGOXIN 0.5 ng/mL; GFR - MDRD 39 (>89); GLUCOSE 139 mg/dL (70-100); PHOSPHORUS 3.9 mg/dL (2.5-4.6); POTASSIUM 4.1 mmol/L (3.5-5.0); SODIUM 136 mmol/L (135-145); URIC ACID 6.3 mg/dL (2.6-7.2)
== END 2021-08-06 14:59 | disposition home or self-care (01) ==
LOC: LAB 14:58
PROVIDERS: ATTEND Specialist
DX: N18.4 Chronic kidney disease, stage 4 (severe) (principal); D64.9 Anemia, unspecified; Z51.81 Encounter for therapeutic drug level monitoring
CPT/HCPCS: 36415; 80069; 80162; 83036; 84550

== ENCOUNTER 2021-09-24 14:58 | Outpatient (CLI) | payer MEDICARE, OTHER ==
[2021-09-24 15:10] LABS: BASOPHILS % (AUTO) 0.7 %; EOSINOPHILS # (AUTO) 0.1 10^3/uL (0.0-0.7); EOSINOPHILS % (AUTO) 2.9 %; HCT - HEMATOCRIT 28.1 % (42.0-52.0); HGB - HEMOGLOBIN 9.1 g/dL (14.0-18.0); LYMPHOCYTES # (AUTO) 0.7 10^3/uL (1.5-3.5); LYMPHOCYTES % (AUTO) 14.6 %; MEAN CORPUSCULAR HEMOGLOBIN 31.5 pg (27.0-31.0); MEAN CORPUSCULAR HGB CONC 32.4 g/dL (32.0-36.0); MEAN CORPUSCULAR VOLUME 97.2 fL (80.0-94.0); MEAN PLATELET VOLUME 8.9 fL (7.4-11.4); MONOCYTES # (AUTO) 0.5 10^3/uL (0.0-1.0); MONOCYTES % (AUTO) 10.4 %; NEUTROPHILS # (AUTO) 3.2 10^3/uL (1.5-6.6); NEUTROPHILS % (AUTO) 71.2 %; PLT - PLATELET COUNT 111 10^3/uL (130-450); RED BLOOD COUNT 2.89 10^6/uL (4.70-6.10); RED CELL DISTRIBUTION WIDTH 17.1 % (12.0-15.0); WHITE BLOOD COUNT 4.4 x10^3/uL (4.8-10.8)
[2021-09-24 16:19] LABS: FERRITIN 316.2 ng/mL (23.9-336.2)
[2021-09-24 16:27] LABS: ALBUMIN 3.4 g/dL (3.2-5.5); CALCIUM 9.2 mg/dL (8.5-10.3); PHOSPHORUS 3.5 mg/dL (2.5-4.6); POTASSIUM 4.1 mmol/L (3.5-5.0); URIC ACID 5.8 mg/dL (2.6-7.2)
[2021-09-24 16:38] LABS: CREATININE,URINE 54.1 mg/dL
[2021-09-24 16:52] LABS: TOTAL PROTEIN,URINE TIMED < 6 mg/dL
== END 2021-09-24 14:59 | disposition home or self-care (01) ==
LOC: LAB 14:58
PROVIDERS: ATTEND Specialist
DX: N18.32 Chronic kidney disease, stage 3b (principal); D63.1 Anemia in chronic kidney disease
CPT/HCPCS: 36415; 80069; 82570; 82728; 83540; 83970; 84156; 84466; 84550; 85025

== ENCOUNTER 2021-11-05 15:16 | Outpatient (CLI) | payer MEDICARE, OTHER ==
[2021-11-05 16:01] LABS: ALBUMIN 3.9 g/dL (3.2-5.5); CALCIUM 9.2 mg/dL (8.5-10.3); CREATININE 2.2 mg/dL (0.6-1.2); PHOSPHORUS 4.2 mg/dL (2.5-4.6); POTASSIUM 3.6 mmol/L (3.5-5.0); URIC ACID 7.3 mg/dL (2.6-7.2)
== END 2021-11-05 15:17 | disposition home or self-care (01) ==
LOC: LAB 15:16
PROVIDERS: ATTEND Specialist
DX: N18.32 Chronic kidney disease, stage 3b (principal); D63.1 Anemia in chronic kidney disease
CPT/HCPCS: 36415; 80069; 82728; 83036; 83540; 84466; 84550

== ENCOUNTER 2021-12-17 12:47 | Outpatient (CLI) | payer MEDICARE, OTHER ==
[2021-12-17 14:20] LABS: ALBUMIN 3.8 g/dL (3.2-5.5); CALCIUM 9.2 mg/dL (8.5-10.3); CREATININE 2.2 mg/dL (0.6-1.2); PHOSPHORUS 4.8 mg/dL (2.5-4.6); URIC ACID 7.4 mg/dL (2.6-7.2)
== END 2021-12-17 12:48 | disposition home or self-care (01) ==
LOC: LAB 12:47
PROVIDERS: ATTEND Specialist
DX: N18.32 Chronic kidney disease, stage 3b (principal); D63.1 Anemia in chronic kidney disease
CPT/HCPCS: 36415; 80069; 82728; 83036; 83540; 84466; 84550

== ENCOUNTER 2021-12-19 09:15 | Outpatient (CLI) | payer MEDICARE, OTHER | END 2021-12-19 09:16 | disposition critical access hospital (66) | LOC: EMS 09:15 | DX: S09.90XA Unspecified injury of head, initial encounter (principal); R46.4 Slowness and poor responsiveness; R41.0 Disorientation, unspecified; E11.649 Type 2 diabetes mellitus with hypoglycemia without coma; S61.412A Laceration without foreign body of left hand, initial encounter; S61.411A Laceration without foreign body of right hand, initial encounter; S51.012A Laceration without foreign body of left elbow, initial encounter; S51.011A Laceration without foreign body of right elbow, initial encounter; S51.812A Laceration without foreign body of left forearm, initial encounter; S51.811A Laceration without foreign body of right forearm, initial encounter; W19.XXXA Unspecified fall, initial encounter; Y92.009 Unspecified place in unspecified non-institutional (private) residence as the place of occurrence of the external cause; Z79.4 Long term (current) use of insulin | CPT/HCPCS: A0425; A0427 ==

== ENCOUNTER 2022-02-06 15:05 | Outpatient (CLI) | payer MEDICARE, OTHER ==
[2022-02-06 16:11] LABS: ALBUMIN 3.4 g/dL (3.2-5.5); CALCIUM 9.2 mg/dL (8.5-10.3); CREATININE 2.7 mg/dL (0.6-1.2); POTASSIUM 3.1 mmol/L (3.5-5.0); URIC ACID 7.6 mg/dL (2.6-7.2)
== END 2022-02-06 15:06 | disposition home or self-care (01) ==
LOC: LAB 15:05
DX: N18.4 Chronic kidney disease, stage 4 (severe) (principal); D63.1 Anemia in chronic kidney disease
CPT/HCPCS: 36415; 80069; 84550; 85018

== ENCOUNTER 2022-02-14 18:38 | Outpatient (CLI) | payer MEDICARE, OTHER | END 2022-02-14 18:39 | disposition critical access hospital (66) | LOC: EMS 18:38 | DX: I46.9 Cardiac arrest, cause unspecified (principal) | CPT/HCPCS: A0425; A0427 ==

== ENCOUNTER 2022-02-14 18:52 | Emergency (ER) | payer MEDICARE, OTHER ==
--- OUTSIDE RECORDS SUMMARY | 2022-02-14 19:13 | EXTERNAL MEDICAL SUMMARY RPT | Continuity of Care Document ---
:1940 Author Organization [facility] Address [address] [place] [address] Phone Care Team Providers Name Role Phone Unavailable Unavailable Unavailable Vahid Caballero Pa-C Unavailable Unavailable Rocio Gonsalves Unavailable Unavailable Allergies and Intolerances date description facility type (no date) TEKTURNA All (unknown) (no date) NIFEDIPINE ER All (unknown) (no date) NORVASC All (unknown) (no date) AMLODIPINE BESYLATE All (unknown) (no date) DOXYCYCLINE All (unknown) Encounters No information. Functional Status No information. Immunizations No information. Medications date description facility [id number]+0000 insulin glargine All 58638595119668+0000 insulin glargine All 37909811664897+0000 insulin glargine All 17618112416503+0000 insulin glargine All 26922403051169+0000 cephalexin All 75461425162875+0000 cephalexin All 00727545393750+0000 metolazone All 42631604458918+0000 metolazone All 39083290024292+0000 metolazone All 71445702141579+0000 metolazone All 74217823380838+0000 bumetanide All 01512301623869+0000 bumetanide All 08942844549781+0000 bumetanide All 78514277352938+0000 bumetanide All 11396569842530+0000 clonidine hcl All 42984728764741+0000 clonidine hcl All 46520928762759+0000 clonidine hcl All 17789191463479+0000 clonidine hcl All 35569461028896+0000 allopurinol All 50784171486081+0000 allopurinol All 24955742612547+0000 allopurinol All 06662014970556+0000 allopurinol All 42689617194737+0000 cephalexin All 50028002442598+0000 cephalexin All 43203382109945+0000 hydralazine All 32760446284895+0000 hydralazine All 79363595967442+0000 hydralazine All 49987763421605+0000 hydralazine All 20113042973974+0000 tamsulosin All 98866377171693+0000 tamsulosin All 12802568220975+0000 tamsulosin All 51030674802899+0000 tamsulosin All 16991323648356+0000 insulin glargine All 17825950998614+0000 insulin glargine All 22650246762569+0000 insulin glargine All 11956759575398+0000 insulin glargine All 72903558080319+0000 allopurinol All 27261070794553+0000 allopurinol All 23315528601209+0000 allopurinol All 60031264824941+0000 allopurinol All 80845341273901+0000 bumetanide All 06465246068712+0000 bumetanide All 93930115301870+0000 bumetanide All 37426620860621+0000 bumetanide All 55277302599418+0000 cephalexin All 70070871873870+0000 cephalexin All 79762029276968+0000 potassium chloride All 61244872067574+0000 potassium chloride All 12508643672451+0000 potassium chloride All 63913987026953+0000 potassium chloride All 61720360623585+0000 carvedilol All 87723412956451+0000 carvedilol All 81637948273489+0000 carvedilol All 87195568159697+0000 carvedilol All 98670622034310+0000 bumetanide All 46819645722144+0000 bumetanide All 30291347744892+0000 bumetanide All 45101624105596+0000 bumetanide All 30282744685827+0000 cephalexin All 61213650914880+0000 cephalexin All 63675927362136+0000 insulin glargine All 03685024923645+0000 insulin glargine All 85077689289084+0000 insulin glargine All 07058374678099+0000 insulin glargine All 10964376940555+0000 metolazone All 58369172473996+0000 metolazone All 58811340114277+0000 metolazone All 28807794704591+0000 metolazone All 70512617339691+0000 metolazone All 86017435509890+0000 metolazone All 10722731896736+0000 metolazone All 51667486482861+0000 metolazone All 91201802390068+0000 carvedilol All 83014250755858+0000 carvedilol All 58768837336286+0000 carvedilol All 74644320635087+0000 carvedilol All 02728951816640+0000 clonidine hcl All 06896798300688+0000 clonidine hcl All 78474687177540+0000 clonidine hcl All 08951430298246+0000 clonidine hcl All 99153783802355+0000 hydralazine All 06971482262985+0000 hydralazine All 08655194112696+0000 hydralazine All 87798954095827+0000 hydralazine All 00958278066215+0000 bumetanide All 07637779298376+0000 bumetanide All 94659773836573+0000 bumetanide All 91300587496455+0000 bumetanide All 96505317067594+0000 metolazone All 82448568202060+0000 metolazone All 83150965105044+0000 metolazone All 11736309707269+0000 metolazone All 70284991443819+0000 atorvastatin All 88868863323525+0000 atorvastatin All 08611539832411+0000 atorvastatin All 00530212974769+0000 atorvastatin All 30498025294808+0000 carvedilol All 17789770784950+0000 carvedilol All 35108772518373+0000 carvedilol All 54112896558479+0000 carvedilol All 87511377972529+0000 clonidine hcl All 61523507050852+0000 clonidine hcl All 60838526336076+0000 clonidine hcl All 15333176868808+0000 clonidine hcl All 74155327543739+0000 atorvastatin All 80834539505747+0000 atorvastatin All 79218400459328+0000 atorvastatin All 38522315391536+0000 atorvastatin All 97260169876376+0000 hydralazine All 02891291863893+0000 hydralazine All 99901017082195+0000 hydralazine All 17040588797551+0000 hydralazine All 93054032677704+0000 tamsulosin All 17564305430958+0000 tamsulosin All 51122758579229+0000 tamsulosin All 62004296998571+0000 tamsulosin All 03119471092731+0000 atorvastatin All 47888042618770+0000 atorvastatin All 00436867326397+0000 atorvastatin All 29774404949145+0000 atorvastatin All 62565388780024+0000 potassium chloride All 01052007106565+0000 potassium chloride All 68536268689937+0000 potassium chloride All 36094919605147+0000 potassium chloride All 57090988647645+0000 atorvastatin All 34847951683632+0000 atorvastatin All 00399184658065+0000 atorvastatin All 95807849648675+0000 atorvastatin All 40032917223446+0000 tamsulosin All 57528756764101+0000 tamsulosin All 34806385487884+0000 tamsulosin All 29987963305878+0000 tamsulosin All 90598719093120+0000 allopurinol All 47333520028590+0000 allopurinol All 43993736263710+0000 allopurinol All 91182245166256+0000 allopurinol All 69596765497400+0000 carvedilol All 21969481493338+0000 carvedilol All 49746711288973+0000 carvedilol All 31936427384811+0000 carvedilol All 20018837754569+0000 potassium chloride All 30270305768038+0000 potassium chloride All 14484670019827+0000 potassium chloride All 90543429136786+0000 potassium chloride All 53850363593667+0000 potassium chloride All 24016230252650+0000 potassium chloride All 66075030396369+0000 potassium chloride All 52682729984341+0000 potassium chloride All 19797221364723+0000 insulin glargine All 93477905871476+0000 insulin glargine All 74260346911007+0000 insulin glargine All 60058079938943+0000 insulin glargine All 21035055847557+0000 tamsulosin All 01300804956114+0000 tamsulosin All 26422821494598+0000 tamsulosin All 73001986351107+0000 tamsulosin All 69935720903863+0000 allopurinol All 29924130102586+0000 allopurinol All 38184684634841+0000 allopurinol All 15040213817805+0000 allopurinol All 49822689291927+0000 clonidine hcl All 69728604281958+0000 clonidine hcl All 39897505520288+0000 clonidine hcl All 35570209881981+0000 clonidine hcl All 61007597879138+0000 hydralazine All 22075474117498+0000 hydralazine All 80700156241815+0000 hydralazine All 38105185896297+0000 hydralazine All Problems No information. Procedures date description facility +0000 Visit Code Hold All [id number]+0000 Visit Code Hold All 62292313547628+0000 Visit Code Hold All 36994017080092+0000 Visit Code Hold All Results/Labs No information. Social History date description facility +0000 Unknown if ever smoked All [id number]+0000 Unknown if ever smoked All 63642379011589+0000 Unknown if ever smoked All 32526185609526+0000 Unknown if ever smoked All Vital Signs date measurement value units +0000 BMI BMI 26.88 kg/m2 +0000 weight_metric weight_metric 77.56 kg 46124232714939+0000 weight_standard weight_standard 171 lb 96590005189186+0000 BP_diastolic BP_diastolic 66 mmHg 31415482561965+0000 BP_systolic BP_systolic 142 mmHg 97617011537831+0000 heart_rate heart_rate 76 /min 38815890646911+0000 height_metric height_metric 170.18 cm 25471212292400+0000 height_standard height_standard 67 in 99910769909054+0000 respiration_rate respiration_rate 16 /min 92055002625659+0000 temperature_metric temperature_metric 36.67 C 33265966065383+0000 temperature_standard temperature_standard 9 8 F
[2022-02-14 19:14] LABS: BASOPHILS % (AUTO) 0.2 %; EOSINOPHILS % (AUTO) 0.3 %; HCT - HEMATOCRIT 23.5 % (42.0-52.0); HGB - HEMOGLOBIN 7.3 g/dL (14.0-18.0); LYMPHOCYTES % (AUTO) 5.6 %; MEAN CORPUSCULAR HGB CONC 31.1 g/dL (32.0-36.0); MEAN CORPUSCULAR VOLUME 103.1 fL (80.0-94.0); MEAN PLATELET VOLUME 10.5 fL (7.4-11.4); NEUTROPHILS % (AUTO) 84.3 %; PLT - PLATELET COUNT 147 10^3/uL (130-450); RED BLOOD COUNT 2.28 10^6/uL (4.70-6.10); RED CELL DISTRIBUTION WIDTH 14.8 % (12.0-15.0)
[2022-02-14 19:17] LABS: WHITE BLOOD COUNT 37.8 x10^3/uL (4.8-10.8)
[2022-02-14 19:18] LABS: ABNORMAL LYMPHS % (MANUAL) 0 %; VBG PCO2 61.3 mmHg (41-51); VBG PH 7.172 (7.31-7.41); VBG PO2 49.5 mmHg (25-47)
[2022-02-14 19:19] LABS: VBG BASE EXCESS -6.5 mmol/L (-2 - +2); VBG OXYGEN SATURATION 74.9 % (60-80); VBG TOTAL CO2 23.8 mmol/L (24-29)
[2022-02-14 19:20] LABS: INR 1.7 (0.8-1.2); PT - PROTHROMBIN TIME 18.1 secs (9.9-12.6)
[2022-02-14 19:31] LABS: BILIRUBIN,URINE NEGATIVE (NEGATIVE); GLUCOSE, URINE (UA) NEGATIVE (NEGATIVE); KETONES,URINE (UA) NEGATIVE (NEGATIVE); LEUKOCYTE ESTERASE, URINE NEGATIVE (NEGATIVE); NITRITE,URINE NEGATIVE (NEGATIVE); OCCULT BLOOD,URINE TRACE-INTA (NEGATIVE); PH,URINE 5.5 PH (5.0-7.5); PROTEIN,URINE NEGATIVE (NEGATIVE); UROBILINOGEN,URINE 0.2 (NORMAL) E.U./dL (NORMAL)
[2022-02-14 19:35] LABS: ABG BASE EXCESS -0.2 mmol/L (-2.0-3.0); ABG HCO3 25.6 mmol/L (22.0-26.0); ABG OXYGEN SATURATION 94 % (94-98); ABG PCO2 48 mmHg (34-45); ABG PH 7.35 (7.35-7.45); ABG PO2 76 mmHg (80-100); ABG TCO2 27.1 MMOL/L (21.0-29.0)
[2022-02-14 19:36] LABS: ABG MODE OF VENTILATION ASSIST/CONTROL; ABG RESPIRATORY RATE 16 b/min; ALLEN TEST NEGATIVE
[2022-02-14] MEDS ORDERED: fentaNYL 100 MCG/2 ML VIAL ONE (19:38)
[2022-02-14 19:39] LABS: CLARITY,URINE CLEAR (CLEAR)
[2022-02-14 19:42] LABS: BAND NEUTROPHILS % (MANUAL) 2 %; BASOPHILS # (MANUAL) 0.4 10^3/uL (0-0.1); BASOPHILS % (MANUAL) 1 %; LYMPHOCYTES % (MANUAL) 8 %; METAMYELOCYTES % (MANUAL) 3 %; MONOCYTES # (MANUAL) 2.3 10^3/uL (0.0-1.0)
[2022-02-14 19:43] LABS: DIFFERENTIAL COMMENT MANUAL DIFFERENTIAL; PLATELET ESTIMATE, MANUAL NORMAL (130-450,000) (NORMAL); PLATELET MORPHOLOGY NORMAL APPEARANCE (NORMAL); RBC MORPHOLOGY (MULTIPLE) 1+ MACROCYTOSIS (NORMAL); WBC MORPHOLOGY (MULTIPLE) 1+ TOXIC GRANULATION (NORMAL)
[2022-02-14 19:47] LABS: ALBUMIN 2.5 g/dL (3.2-5.5); ALBUMIN/GLOBULIN RATIO 0.7 (1.0-2.2); BILIRUBIN,TOTAL 1.4 mg/dL (0.2-1.0); CALCIUM 7.5 mg/dL (8.5-10.3); CREATININE 3.4 mg/dL (0.6-1.2); MAGNESIUM 1.6 mg/dL (1.7-2.8); POTASSIUM 2.9 mmol/L (3.5-5.0); TOTAL PROTEIN 6.1 g/dL (6.7-8.2)
[2022-02-14] MEDS ORDERED: POTASSIUM CHLOR 20 MEQ/100 ML 20 MEQ/100 ML BAG IV ONE (19:49)
[2022-02-14] MEDS ORDERED: PIPERACILLIN/TAZOBACTAM 3.375 GM in SODIUM CHLORIDE 0.9% MINIBAG 100 ML IV STA (19:50)
[2022-02-14] MEDS ORDERED: VANCOMYCIN INJ 2 GM in SODIUM CHLORIDE 0.9% 500 ML IV STA (20:02)
[2022-02-14] MEDS ORDERED: VANCOMYCIN 1 GM VIAL ONE (20:18)
--- NOTE | 2022-02-14 20:24 | ED Physician Documentation ---
PD HPI CPR - Stated complaint Stated Complaint: CPR - Chief complaint Chief Complaint: Cardiac - History obtained from History obtained from: Family, EMS - Additional information Additional information: 81-year-old man presented in cardiac arrest (see MDM). further history limited by patient acuity. Review of Systems Unable to obtain: Intubated PD PAST MEDICAL HISTORY - Past Medical History Past Medical History: Yes Cardiovascular: Congestive heart failure, Hypertension, High cholesterol, Atrial fibrillation, Valve disorder, Other Respiratory: None Neuro: None Endocrine/Autoimmune: Type 2 diabetes GI: None : Renal insuffiency HEENT: Other Psych: None Musculoskeletal: Gout, Other Derm: Other - Past Surgical History Past Surgical History: Yes Ortho: ACL reconstruction, Carpal Tunnel surgery, Other Cardiovascular: Pacemaker HEENT: Other - Present Medications Home Medications: Ambulatory Orders Medication Instructions Recorded Confirmed Carvedilol 50 mg PO BIDWM 06/28/13 12/19/21 Cod Liver Oil 1 cap PO DAILY 06/28/13 12/19/21 allopurinoL [Zyloprim] 200 mg PO DAILY 06/28/13 12/19/21 cloNIDine HCL [Clonidine HCl] 0.2 mg PO DAILY@06/28/13 12/20/21 Digoxin 0.0625 mg PO QPM@12/05/13 12/19/21 Atorvastatin [Lipitor] 20 mg PO DAILY 06/10/14 12/19/21 Cholecalciferol [Vitamin D3] 25 mcg PO DAILY 02/24/21 12/19/21 Potassium Chloride [K-Dur] 40 meq PO QDAC 02/24/21 12/19/21 metOLazone [Metolazone] 5 mg PO .Monday02/24/21 12/19/21 Bumetanide 2 mg PO BID@,11/27/21 12/19/21 Folic Acid 2 mg PO DAILY 11/27/21 12/19/21 hydrALAZINE [Apresoline] 10 mg PO TID@,,11/27/21 12/20/21 Ferrous Sulfate 325 mg PO DAILY 11/30/21 12/19/21 Folic Acid/Vit B Complex and C 1 tablet PO DAILY 11/30/21 12/19/21 [Suzy-Adore Tablet] Insulin Lispro [Humalog Kwikpen See Protocol SQ AC 11/30/21 12/19/21 U-100] cloNIDine [Catapres] 0.1 mg PO DAILY 12/20/21 12/20/21 Insulin Glargine [Lantus Solostar] 12 unit SQ DAILY #4 each 12/21/21 Pen Needle, Diabetic [Pen Needle] 1 each MC DAILY #30 ndl 12/21/21 - Allergies Allergies/Adverse Reactions: Allergies Allergy/AdvReac Type Severity Reaction Status Date / Time aliskiren hemifumarate * AdvReac Unknown Cramps [facility]14[facility]22 [facility] amlodipine AdvReac Unknown Edema Verified 02/14/22 19:14 amlodipine besylate * AdvReac Unknown Edema Verified 02/14/22 19:14 [From [facility]] doxycycline AdvReac Unknown Unknown Verified 02/14/22 19:14 minoxidil AdvReac Unknown Edema Verified 02/14/22 19:14 nifedipine AdvReac Unknown Edema Verified 02/14/22 19:14 - Social History Does the pt smoke?: No Smoking Status: Never smoker Does the pt drink ETOH?: Yes Does the pt have substance abuse?: No - Immunizations Immunizations are current?: No Immunizations: TDAP >10years/unknown - POLST Patient has POLST: No POLST Status: Full Code PD ED PE NORMAL - Vitals Vital signs reviewed: Yes - General General: Other (intubated, initially unresponsive. post rosc, patient with gag reflex) - HEENT HEENT: Atraumatic, Other (pupils reactive. ett initially 23 at lip, moved back to 21 at lip. ) - Neck Neck: Other (no deformity) - Cardiac Cardiac: Other (initially pulseless, CPR in progress) - Respiratory Respiratory: Other (BL breath sounds ) - Abdomen Abdomen: Non distended - Male Male : Other (hernandez placed) - Back Back: Other (no visible deformity) - Derm Derm: Other (pale and clammy) - Extremities Extremities: No deformity - Neuro Neuro: Other (intubated. pupillary reflex and gag reflex intact) - Psych Psych: Other (unresponsive) Results - Vitals Vitals: Vital Signs - 24 hr 02/14/22 02/14/22 02/14/22 19:10 19:14 19:44 Temperature 36.7 C Heart Rate 59 L 0 L 72 Respiratory 21 14 Rate Blood Pressure 0/0 L 97/64 O2 Saturation 88 L 93 02/14/22 02/14/22 02/14/22 20:05 20:19 20:28 Temperature Heart Rate 61 76 76 Respiratory 16 15 15 Rate Blood Pressure 97/60 92/62 92/64 O2 Saturation 100 99 97 02/14/22 02/14/22 02/14/22 20:34 21:00 21:20 Temperature Heart Rate 73 62 Respiratory 10 L 21 Rate Blood Pressure 92/64 88/63 L 96/65 O2 Saturation 93 97 02/14/22 02/14/22 02/14/22 21:40 21:50 22:57 Temperature Heart Rate 60 69 Respiratory 10 L Rate Blood Pressure 109/73 100/68 O2 Saturation 97 Oxygen O2 Source Mechanical ventilator - Labs Labs: Laboratory Tests 02/14/22 02/14/22 02/14/22 19:04 19:04 19:04 WBC 37.8 H* RBC 2.28 L Hgb 7.3 L Hct 23.5 L MCV 103.1 H MCH 32.0 H MCHC 31.1 L RDW 14.8 Plt Count 147 MPV 10.5 Neut # (Auto) Not Reportable Lymph # (Auto) Not Reportable [place] # (Auto) Not Reportable Eos # (Auto) Not Reportable Baso # (Auto) Not Reportable Absolute Nucleated RBC Not Reportable Total Counted 100 Band Neuts % (Manual) 2 Abnorm Lymph % (Manual) 0 Metamyelocytes % 3 H Nucleated RBC % Not Reportable Neutrophils # (Manual) 31.0 H Lymphocytes # (Manual) 3.0 Monocytes # (Manual) 2.3 H Eosinophils # (Manual) 0.0 Basophils # (Manual) 0.4 H Differential Comment MANUAL DIFFERENTIAL WBC Morphology 1+ TOXIC GRANULATION Platelet Estimate NORMAL (130-450,000) Platelet Morphology NORMAL APPEARANCE RBC Morph Micro Appear 1+ MACROCYTOSIS PT 18.1 H INR 1.7 H Bld Gas Analysis Time Sample Site ABG pH ABG pCO2 ABG pO2 ABG HCO3 ABG Total CO2 ABG O2 Saturation ABG Base Excess [place] Test VBG pH VBG pCO2 VBG pO2 VBG HCO3 VBG Total CO2 VBG O2 Saturation VBG Base Excess Respiration Rate O2 Delivery Device Vent Mode FiO2 Tidal Volume PEEP Sodium 131 L Potassium 2.9 L Chloride 92 L Carbon Dioxide 23 Anion Gap 16.0 H BUN 98 H* Creatinine 3.4 H Estimated GFR (MDRD) 17 L Glucose 283 H Lactic Acid Calcium 7.5 L Magnesium 1.6 L Total Bilirubin 1.4 H AST 52 H ALT 20 Alkaline Phosphatase 107 Total Protein 6.1 L Albumin 2.5 L Globulin 3.6 Albumin/Globulin Ratio 0.7 L Lipase 30 Urine Color Urine Clarity Urine pH Ur Specific [place] Urine Protein Urine Glucose (UA) Urine Ketones Urine Occult Blood Urine Nitrite Urine Bilirubin Urine Urobilinogen Ur Leukocyte Esterase Ur Microscopic Review Urine Culture Comments Nasal Adenovirus (PCR) Nasal B. parapertussis DNA (PCR) Nasal Coronavir 229E PCR Nasal Coronavir HKU1 PCR Nasal Coronavir NL63 PCR Nasal Coronavir OC43 PCR Nasal Enterovir/Rhinovir PCR Nasal Influenza B PCR Nasal Influenza A PCR Nasal Parainfluen 1 PCR Nasal Parainfluen 2 PCR Nasal Parainfluen 3 PCR Nasal Parainfluen 4 PCR Nasal RSV (PCR) Nasal B.pertussis DNA PCR Nasal C.pneumoniae (PCR) Yung Human Metapneumo PCR Nasal M.pneumoniae (PCR) Nasal SARS-CoV-2 (PCR) SARS-CoV-2 (PCR) 02/14/22 02/14/22 02/14/22 19:04 19:04 19:14 WBC RBC Hgb Hct MCV MCH MCHC RDW Plt Count MPV Neut # (Auto) Lymph # (Auto) [place] # (Auto) Eos # (Auto) Baso # (Auto) Absolute Nucleated RBC Total Counted Band Neuts % (Manual) Abnorm Lymph % (Manual) Metamyelocytes % Nucleated RBC % Neutrophils # (Manual) Lymphocytes # (Manual) Monocytes # (Manual) Eosinophils # (Manual) Basophils # (Manual) Differential Comment WBC Morphology Platelet Estimate Platelet Morphology RBC Morph Micro Appear PT INR Bld Gas Analysis Time Sample Site ABG pH ABG pCO2 ABG pO2 ABG HCO3 ABG Total CO2 ABG O2 Saturation ABG Base Excess [place] Test VBG pH 7.172 L VBG pCO2 61.3 H VBG pO2 49.5 H VBG HCO3 22.0 L VBG Total CO2 23.8 L VBG O2 Saturation 74.9 VBG Base Excess -6.5 L Respiration Rate O2 Delivery Device Vent Mode FiO2 Tidal Volume PEEP Sodium Potassium Chloride Carbon Dioxide Anion Gap BUN Creatinine Estimated GFR (MDRD) Glucose Lactic Acid 6.4 H* Calcium Magnesium Total Bilirubin AST ALT Alkaline Phosphatase Total Protein Albumin Globulin Albumin/Globulin Ratio Lipase Urine Color YELLOW Urine Clarity CLEAR Urine pH 5.5 Ur Specific [place] 1.015 Urine Protein NEGATIVE Urine Glucose (UA) NEGATIVE Urine Ketones NEGATIVE Urine Occult Blood TRACE-INTA Urine Nitrite NEGATIVE Urine Bilirubin NEGATIVE Urine Urobilinogen 0.2 (NORMAL) Ur Leukocyte Esterase NEGATIVE Ur Microscopic Review NOT INDICATED Urine Culture Comments NOT INDICATED Nasal Adenovirus (PCR) Nasal B. parapertussis DNA (PCR) Nasal Coronavir 229E PCR Nasal Coronavir HKU1 PCR Nasal Coronavir NL63 PCR Nasal Coronavir OC43 PCR Nasal Enterovir/Rhinovir PCR Nasal Influenza B PCR Nasal Influenza A PCR Nasal Parainfluen 1 PCR Nasal Parainfluen 2 PCR Nasal Parainfluen 3 PCR Nasal Parainfluen 4 PCR Nasal RSV (PCR) Nasal B.pertussis DNA PCR Nasal C.pneumoniae (PCR) Yung Human Metapneumo PCR Nasal M.pneumoniae (PCR) Nasal SARS-CoV-2 (PCR) SARS-CoV-2 (PCR) 02/14/22 02/14/22 02/14/22 19:18 19:18 19:27 WBC RBC Hgb Hct MCV MCH MCHC RDW Plt Count MPV Neut # (Auto) Lymph # (Auto) [place] # (Auto) Eos # (Auto) Baso # (Auto) Absolute Nucleated RBC Total Counted Band Neuts % (Manual) Abnorm Lymph % (Manual) Metamyelocytes % Nucleated RBC % Neutrophils # (Manual) Lymphocytes # (Manual) Monocytes # (Manual) Eosinophils # (Manual) Basophils # (Manual) Differential Comment WBC Morphology Platelet Estimate Platelet Morphology RBC Morph Micro Appear PT INR Bld Gas Analysis Time 2033 Sample Site RIGHT BRACHIAL ABG pH 7.35 ABG pCO2 48 H ABG pO2 76 L ABG HCO3 25.6 ABG Total CO2 27.1 ABG O2 Saturation 94 ABG Base Excess -0.2 [place] Test NEGATIVE VBG pH VBG pCO2 VBG pO2 VBG HCO3 VBG Total CO2 VBG O2 Saturation VBG Base Excess Respiration Rate 16 O2 Delivery Device VENTILATOR Vent Mode ASSIST/CONTROL FiO2 100.00 Tidal Volume 550 PEEP 5 Sodium Potassium Chloride Carbon Dioxide Anion Gap BUN Creatinine Estimated GFR (MDRD) Glucose Lactic Acid Calcium Magnesium Total Bilirubin AST ALT Alkaline Phosphatase Total Protein Albumin Globulin Albumin/Globulin Ratio Lipase Urine Color Urine Clarity Urine pH Ur Specific [place] Urine Protein Urine Glucose (UA) Urine Ketones Urine Occult Blood Urine Nitrite Urine Bilirubin Urine Urobilinogen Ur Leukocyte Esterase Ur Microscopic Review Urine Culture Comments Nasal Adenovirus (PCR) NOT DETECTED Nasal B. parapertussis DNA (PCR) NOT DETECTED Nasal Coronavir 229E PCR NOT DETECTED Nasal Coronavir HKU1 PCR NOT DETECTED Nasal Coronavir NL63 PCR NOT DETECTED Nasal Coronavir OC43 PCR NOT DETECTED Nasal Enterovir/Rhinovir PCR NOT DETECTED Nasal Influenza B PCR NOT DETECTED Nasal Influenza A PCR NOT DETECTED Nasal Parainfluen 1 PCR NOT DETECTED Nasal Parainfluen 2 PCR NOT DETECTED Nasal Parainfluen 3 PCR NOT DETECTED Nasal Parainfluen 4 PCR NOT DETECTED Nasal RSV (PCR) NOT DETECTED Nasal B.pertussis DNA PCR NOT DETECTED Nasal C.pneumoniae (PCR) NOT DETECTED Yung Human Metapneumo PCR NOT DETECTED Nasal M.pneumoniae (PCR) NOT DETECTED Nasal SARS-CoV-2 (PCR) NOT DETECTED SARS-CoV-2 (PCR) NOT DETECTED Procedures - Central Line Central Line Preparation: Unable to obtain consent (emergent procedure, consent implied), Time out completed, Ultrasound used, Sterile prep and drape Central line location: Right Femoral Central line type: Triple lumen Central line aftercare: Chlorhexidine disc placed, Secured, Placement confirmed, No complications, Pt tolerated well - Chest Tube (location) right 5th middle axillary line Chest tube preparation: Unable to consent (emergent procedure, consent implied), Sterile prep and drape Chest tube location: Right, Mid axillary line Chest tube anesthesia: Lidocaine Chest tube return: Air, Blood, Connected to suction (500 cc out in first 10 minutes) Chest tube after care: Sutured, Confirmed with xray, Pt tolerated well PD MEDICAL DECISION MAKING - ED course Complexity details: reviewed old records, reviewed results, re-evaluated patient, considered differential, d/w family, d/w client consultant ED course: 81-year-old man with extensive cardiac history, pacemaker/AICD, tricuspid dysfunction (scheduled for repair this upcoming week at [facility]), diabetes, CKD, chronic anemia, presents in cardiac arrest tonight. Daughter reported that patient has been short of breath all day and had a witnessed cardiac arrest this evening with bystander CPR. On EMS arrival CPR was continued and patient found to be in ventricular tachycardia and V. fib arrest with multiple rounds of ROSC, multiple shocks, multiple rounds of epi amiodarone. Upon arrival to ED, patient in cardiac arrest once again, ACLS protocol was continued (see code sheet). Patient has now been stabilized with ROSC and multiple blood pressure readings with MAP 60-70 and Levophed at 16 mcg/min. He is on an amiodarone drip and has received vancomycin and Zosyn. WBC 37, lactate 6. suspect cardiac versus metabolic cause for arrest. d/w Dr. Peralta, accepting at [facility] as well as Dr. Raphael, CT surgery regarding his care. family confirmed they would like him transferred and would like to continue all interventions, however if he loses pulses again then they wish to not have CPR. d/w radiology re: mild to moderate R basilar PTX. Will apply CTube, shoot repeat CXR to reevaluate. chest tube in place on CXR. also withdrew ETT to 21 at [facility], confirmed placement. signout provided to EMS. - Critical Care Time Includes: Direct patient care, Review records, Reassess patient, Document care, Coordinate care, Medical consult, Family consult for tx dec Data interpretation: Labs, Pulse ox, ABG, CXR Departure - Departure Disposition: 02 Transfer Acute Care Hosp Clinical Impression: Shortness of breath, Pulmonary edema, V-tach, Cardiac arrest Condition: Critical Discharge Date/Time: 02/14/22 22:44
[2022-02-14] MEDS ORDERED: fentaNYL 2,500 MCG in SODIUM CHLORIDE 0.9% 200 ML IV STA (20:54)
[2022-02-14 21:00] LABS: B. PARAPERTUSSIS- RESP PCR PAN NOT DETECTED; B. PERTUSSIS- RESP PCR PANEL NOT DETECTED; C. PNEUMONIAE- RESP PCR PANEL NOT DETECTED; CORONAVIRUS 229E-RESP PCR NOT DETECTED; CORONAVIRUS HKU1-RESP PCR NOT DETECTED; CORONAVIRUS NL63-RESP PCR NOT DETECTED; CORONAVIRUS OC43-RESP PCR NOT DETECTED; HUMAN METAPNEUMOVIRUS NOT DETECTED; INFLUENZA A- RESP PCR PANEL NOT DETECTED; INFLUENZA B - RESP PCR PANEL NOT DETECTED; M. PNEUMONIAE- RESP PCR PANEL NOT DETECTED; PARAINFLUENZA VIRUS 1 NOT DETECTED; PARAINFLUENZA VIRUS 2 NOT DETECTED; PARAINFLUENZA VIRUS 3 NOT DETECTED; PARAINFLUENZA VIRUS 4 NOT DETECTED; RHINOVIRUS/ENTEROVIRUS NOT DETECTED; RSV- RESP PCR PANEL NOT DETECTED; SARS-CoV-2 -RESP PCR PANEL NOT DETECTED
--- NOTE | 2022-02-14 21:08 | XRAY Report ---
PROCEDURE: Chest 1 View X-Ray INDICATIONS: chest pain TECHNIQUE: One view of the chest was acquired. COMPARISON: 05/02/2021. FINDINGS: Surgical changes and devices: There is an endotracheal tube with the tip approximately 1.9 cm from t he dee. Lungs and pleura: There is a moderate-sized right pneumothorax in the right lung base. No definite l eft pneumothorax. Evaluation is limited by supine technique. There is diffuse pulmonary edema bilater ally. Left retrocardiac opacities are consistent with consolidation or atelectasis. There is a small left pleural effusion. Mediastinum: Mediastinal contours appear normal. Heart size is normal. Bones and chest wall: No suspicious bony lesions. No definite fractures identified. There are multip le overlying wires, pads, and trauma board limiting evaluation. IMPRESSION: 1. Moderate right pneumothorax. 2. Endotracheal tube tip approximately 1.9 cm from the dee. Recommend withdrawal by approximately 2 cm. 3. Bilateral pulmonary edema. 4. Left retrocardiac consolidation or atelectasis. Findings discussed with Dr. Hill on 02/14/2022 at 9:00 PM. Reviewed by: Daniel Loredo MD on 02/14/2022 9:06 PM PST Approved by: Daniel Loredo MD on 02/14/2022 9:06 PM PST Station ID: [id number]
[2022-02-14] MEDS ORDERED: LIDOCAINE 1%-EPI 1:100000 20 ML MDV SUBQ STA (21:12)
[2022-02-14 21:50] VITALS: BP 100/68
--- NOTE | 2022-02-14 22:17 | XRAY Report ---
PROCEDURE: Chest for Line Placement INDICATIONS: reevaluate R PTX TECHNIQUE: One view of the chest was acquired. Study online and available for interpretation at 10:0 4 PM. COMPARISON: Prior study from 02/14/2022. FINDINGS: Surgical changes and devices: There is a new right chest tube with the tip projecting over the media l right upper lung zone. There has been interval repositioning of the endotracheal tube with the tip approximately 4 cm from the dee. A new nasogastric tube is present with the tip extending into the stomach. The side-port is demonstrated in the distal esophagus. A left chest wall dual-lead pacemake r is redemonstrated. Lungs and pleura: Evaluation limited by supine technique. There is a small residual right pneumothor ax, markedly decreased from the prior study. No definite left pneumothorax. No definite pleural effus ions identified on the current supine study. There is persistent bilateral pulmonary edema. Left retr ocardiac consolidation or atelectasis redemonstrated. Mediastinum: Mediastinal contours appear widened likely due to portable supine technique. Heart siz e is normal. Bones and chest wall: No definite displaced fractures. No suspicious bony lesions. Overlying soft t issues appear unremarkable. IMPRESSION: 1. New right chest tube with marked decrease in size of a persistent small right pneumothorax. 2. Interval repositioning of the endotracheal tube with the tip approximately 4 cm from the dee. 3. New nasogastric tube demonstrated with the tip in the stomach. The side-port is likely located in the distal esophagus. Recommend further advancement into the stomach. 4. Persistent pulmonary edema and retrocardiac atelectasis or consolidation. Reviewed by: Daniel Loredo MD on 02/14/2022 10:16 PM PST Approved by: Daniel Loredo MD on 02/14/2022 10:16 PM PST Station ID: [id number]
== END 2022-02-14 22:44 | disposition short-term general hospital (02) ==
LOC: EDBD → EDUNIT# → ED 18:52
DX: I46.9 Cardiac arrest, cause unspecified (principal); I50.1 Left ventricular failure, unspecified; J93.9 Pneumothorax, unspecified; I48.91 Unspecified atrial fibrillation; E11.22 Type 2 diabetes mellitus with diabetic chronic kidney disease; I13.0 Hypertensive heart and chronic kidney disease with heart failure and stage 1 through stage 4 chronic kidney disease, or unspecified chronic kidney disease; N18.9 Chronic kidney disease, unspecified; Z79.4 Long term (current) use of insulin; Z95.0 Presence of cardiac pacemaker; Z20.822 Contact with and (suspected) exposure to COVID-19
CPT/HCPCS: 32551; 36415; 36556; 36600; 71045; 80053; 81003; 82803; 83605; 83690; 83735; 85025; 85610; 87633; 93005; 94002; 96361; 96365; 96375; 99291; J3010; J3370; 81001; 87086